=== PATIENT | female | born 1985 | race Caucasian/White ===

== ENCOUNTER 2017-07-25 04:35 | Emergency (ER) | payer SELFPAY ==
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
== END 2017-07-25 06:20 | disposition home or self-care (01) ==
LOC: MW.ED 04:35
DX: S09.90XA Unspecified injury of head, initial encounter (principal); S19.9XXA Unspecified injury of neck, initial encounter; F17.210 Nicotine dependence, cigarettes, uncomplicated; Z91.013 Allergy to seafood; Y04.0XXA Assault by unarmed brawl or fight, initial encounter
CPT/HCPCS: 70450; 70450-26; 72125; 72125-26; 81025; 99283; 99284-25

== ENCOUNTER 2019-01-01 13:02 | Inpatient (IN) | payer MEDICAID ==
[2019-01-01] MEDS ORDERED: Nalbuphine 10 MG/1 ML Vial IVPUSH PRN (13:22)
[2019-01-01] MEDS ORDERED: Sodium Chloride 0.9% 10 ML SDV IV PRN (13:22)
[2019-01-01] MEDS ORDERED: Methylergonovine 0.2 MG/1 ML Amp IM PRN (13:22)
[2019-01-01] MEDS ORDERED: Tranexamic Acid 1,000 MG in Sodium Chloride 0.9% 100 ML IV PRN (13:22)
[2019-01-01] MEDS ORDERED: Lidocaine 1% 50 ML MDV INJECT PRN (13:22)
[2019-01-01] MEDS ORDERED: Misoprostol 200 MCG Tab PO PRN (13:22)
[2019-01-01] MEDS ORDERED: Sodium Chloride 0.9% 10 ML Syringe FLUSH PRN (13:22)
[2019-01-01] MEDS ORDERED: Water For Irrigation,Sterile 1,000 ML Container IRR PRN (13:22)
[2019-01-01] MEDS ORDERED: Sodium Chloride 0.9% 2.5 ML Syringe FLUSH PRN (13:22)
[2019-01-01] MEDS ORDERED: Carboprost Tromethamine 250 MCG/1 ML Amp IM PRN (13:22)
[2019-01-01] MEDS ORDERED: Butorphanol 1 MG/ML SDV IVPUSH PRN (13:22)
[2019-01-01] MEDS ORDERED: Oxytocin/0.9 % Sodium Chloride 30 UNIT/500 ML BAG IV SCH (13:30)
[2019-01-01] MEDS: Lactated Ringers 1,000 ML IV SCH ×2 (13:59→16:44)
[2019-01-01] MEDS ORDERED: Aluminum Hydroxide/Magnesium Hydroxide/Simethicone Susp 30 ML Cup PO ONE (16:06)
[2019-01-01] MEDS ORDERED: Ropivacaine HCl/PF 100 ML ONE (16:23)
[2019-01-01] MEDS ORDERED: fentaNYL 100 MCG/2 ML SDV ONE (16:23)
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
--- NOTE | 2019-01-01 16:46 | PCM.PRNOTE ---
- Free Text/Narrative Note: Anes Note 1626 Patient requests epidural for L&D. Sitting position. Level L3-L4, midline approach. Sterile tecnique, chloraprep scrub to lumbar area. Sterile fenestrated drape applied. Epidural space easily achieved single attempt with ease. CLARITA at 4 cm, cath threaded 5 cm with ease. Secured at 9 cm at skin. Sterile adhesive dressing applied. Test 1631 3 cc 1.5% lido with epi negative. 1633 load 10 cc 0.2% ropivicaine with 1 mcg cc fentanyl in slow divided doses. 1636 pump started with same solution at 8 cc hr with 6 cc q 20 min prn bolus. Time with Patient [id number] Jose Miguel George CRNA
--- NOTE | 2019-01-01 18:43 | PCM.OPNOTE ---
- General Post-Op/Procedure Note Date of Surgery/Procedure: 01/01/19 Operative Procedure(s): /IP Findings: Viable male APGARs 8, 9 weight pending. Spontaneous delivery intact placenta with 3 V cord. Meconium stained fluid. Pre Op Diagnosis: 37/6 week IUP. Labor. Meconium stained fluid Post-Op Diagnosis: Same Anesthesia Technique: Epidural Primary Surgeon: Jeannine Quinn EBL in mLs: 300 Complications: none known Condition: Stable Free Text/Narrative:: Dictation [id number]
--- NOTE | 2019-01-01 19:10 | OR ---
SURGEON: Jeannine Quinn M.D. DATE OF PROCEDURE: 01/01/2019 PREOPERATIVE DIAGNOSES: 1. A 37- and 6-week intrauterine . 2. Active labor. 3. Meconium-stained amniotic fluid. POSTOPERATIVE DIAGNOSES: 1. A 37- and 6-week intrauterine . 2. Active labor. 3. Meconium-stained amniotic fluid. PROCEDURE PERFORMED: Spontaneous vaginal delivery with intact perineum. PRIMARY SURGEON: Jeannine Quinn M.D. ANESTHESIA: Epidural. ESTIMATED BLOOD LOSS: 300 mL. FINDINGS: Viable male. scores of 8 at one minute and 9 at five minutes. Weight is pending. Spontaneous delivery. Intact placenta. Meconium-stained amniotic fluid. COMPLICATIONS: None known. DISPOSITION: The patient in LDRP, infant in Nursery. PROCEDURE IN DETAIL: Cathy is a 33-year-old G5, P3, A1, at 37 and 6 weeks gestational age, who presents on the afternoon of 01/01/2019 with regular contractions. On initial examination, she was found to be 5 cm, and therefore, was admitted. Routine labs were drawn. IV hydration was initiated. heart tones in the 140s with variability. She then progressed to 6 to 7 cm. She is group B beta strep negative, underwent amniotomy. The fluid appeared to be dark or sanguinous at this point. heart tones being 140s with variability. The patient continued to labor, and once she was 8 to 9 cm, she did request epidural. She underwent this satisfactorily, became more comfortable, and progressed to complete, 100% effaced, +1 station. She began pushing efforts and pushed with good effort, was able to deliver to a +3 station, was placed in modified dorsal lithotomy position, and was prepped and draped in the usual aseptic manner. Continued with pushing efforts, was able to deliver to a +5. Head was delivered, followed by anterior shoulder, posterior shoulder, and remainder of the body. The infant's oropharynx and nares bulb suctioned. Infant had good tone and was crying. There was meconium-stained fluid noted. The infant was handed off to his mother with attending nursing staff at the side. After a delay, cord was clamped x2 and cut. The cord arterial, cord venous, and cord blood sampling obtained. Light pressure was applied while the placenta was delivered spontaneously intact. Vigorous fundal uterine massage was then applied while 30 units of Pitocin was delivered in 500 mL of IV fluid. Upon inspection of the cervix, vaginal sidewalls, and perineum, these were found to be intact. The uterus remained firm. Hemostasis was evident. Sponge and instrument count was correct. The patient remained in LDRP, infant to Nursery. ZEINAB / JOSELIN /[id number]
[2019-01-01] MEDS ORDERED: Witch Hazel Medicated Pads 40/Jar TOP ONE (21:25)
[2019-01-01] MEDS ORDERED: Benzocaine/Menthol 20%-0.5% Spray 78 GM Cannister ONE (21:26)
[2019-01-01] MEDS ORDERED: oxyCODONE 5 MG Tab PO PRN (22:33)
[2019-01-01] MEDS ORDERED: Ibuprofen 800 MG Tab PO PRN (22:33)
[2019-01-01] MEDS ORDERED: Benzocaine/Menthol 20%-0.5% Spray 78 GM Cannister TOP PRN (22:33)
[2019-01-01] MEDS ORDERED: Ibuprofen 400 MG Tab PO PRN (22:33)
[2019-01-01] MEDS ORDERED: Lanolin 100% Cream 7 GM Tube TOP PRN (22:33)
[2019-01-01] MEDS ORDERED: Witch Hazel Medicated Pads 40/Jar TOP PRN (22:33)
[2019-01-01] MEDS ORDERED: Acetaminophen 500 MG Tab PO PRN ×2 (22:33)
--- NOTE | 2019-01-02 07:18 | PCM.POSTAN ---
POST ANESTHESIA ASSESSMENT - MENTAL STATUS Mental Status: Alert - RESPIRATORY Respiratory Status: Respiratory Rate WNL - CARDIOVASCULAR CV Status: Pulse Rate WNL - GASTROINTESTINAL GI Status: No Symptoms - POST OP HYDRATION Hydration Status: Adequate & Stable
--- NOTE | 2019-01-02 07:19 | PCM48HPAN ---
Post Anesthesia Note - EVALUATION WITHIN 48HRS OF ANESTHETIC Vital Signs in Normal Range: Yes Patient Participated in Evaluation: Yes Respiratory Function Stable: Yes Airway Patent: Yes Cardiovascular Function Stable: Yes Hydration Status Stable: Yes Pain Control Satisfactory: Yes Nausea and Vomiting Control Satisfactory: Yes Mental Status Recovered: Yes Resp Rate: 16
[2019-01-02] MEDS ORDERED: Ondansetron 4 MG/2 ML SDV IVPUSH PRN (07:55)
[2019-01-02] MEDS ORDERED: Docusate Sodium 100 MG Cap PO PRN (07:55)
[2019-01-02] MEDS ORDERED: Bisacodyl 10 MG Supp RECTAL PRN (07:55)
--- NOTE | 2019-01-02 08:36 | PCM.PNPP ---
- General Info Date of Service: 01/02/19 Functional Status: Reports: Pain Controlled, Tolerating Diet, Ambulating, Urinating - Review of Systems General: Reports: Fatigue. Denies: Fever, Weakness Pulmonary: Denies: Shortness of Breath Cardiovascular: Denies: Chest Pain, Palpitations, Lightheadedness Gastrointestinal: Denies: Abdominal Pain, Nausea, Vomiting Genitourinary: Denies: Flank Pain Musculoskeletal: Reports: No Symptoms Skin: Reports: No Symptoms Neurological: Reports: No Symptoms Psychiatric: Reports: No Symptoms - General Info Date of Service: 01/02/19 - Patient Data Vital Signs - Most Recent: Last Vital Signs Temp 36.8 C 01/02/19 07:07 Pulse 83 01/02/19 07:07 Resp 16 01/02/19 07:18 BP 108/70 01/02/19 07:07 Pulse Ox 95 01/02/19 07:07 Weight - Most Recent: 207.4 kg Lab Results - Last 24 Hours: Laboratory Results - last 24 hr 01/01/19 01/01/19 01/01/19 Range/Units 13:55 13:55 14:00 WBC 12.98 H (4.0-11.0) K/uL RBC 4.05 L (4.30-5.90) M/uL Hgb 12.5 (12.0-16.0) g/dL Hct 37.0 (36.0-46.0) % MCV 91.4 (80.0-98.0) fL MCH 30.9 (27.0-32.0) pg MCHC 33.8 (31.0-37.0) g/dL RDW Std Deviation 47.4 (28.0-62.0) fl RDW Coeff of Fareed 14 (11.0-15.0) % Plt Count 139 L (150-400) K/uL MPV 12.30 H (7.40-12.00) fL Nucleated RBC % 0.0 /100WBC Nucleated RBCs # 0 K/uL Cord ABG pH (7.18-7.38) Cord ABG Base Excess (-10--2) Cord VBG pH (7.25-7.45) Cord VBG Base Excess (-10--2) Urine Opiates Screen NEGATIVE (NEGATIVE) Ur Oxycodone Screen NEGATIVE (NEGATIVE) Urine Methadone Screen NEGATIVE (NEGATIVE) Ur Barbiturates Screen NEGATIVE (NEGATIVE) Ur Phencyclidine Scrn NEGATIVE (NEGATIVE) Ur Amphetamine Screen NEGATIVE (NEGATIVE) U Methamphetamines Scrn NEGATIVE (NEGATIVE) U Benzodiazepines Scrn NEGATIVE (NEGATIVE) U Cocaine Metab Screen NEGATIVE (NEGATIVE) U Marijuana (THC) Screen NEGATIVE (NEGATIVE) Blood Type O POSITIVE Antibody Screen NEGATIVE 01/01/19 01/02/19 Range/Units 18:27 05:46 WBC (4.0-11.0) K/uL RBC (4.30-5.90) M/uL Hgb 11.9 L (12.0-16.0) g/dL Hct 36.1 (36.0-46.0) % MCV (80.0-98.0) fL MCH (27.0-32.0) pg MCHC (31.0-37.0) g/dL RDW Std Deviation (28.0-62.0) fl RDW Coeff of Fareed (11.0-15.0) % Plt Count (150-400) K/uL MPV (7.40-12.00) fL Nucleated RBC % /100WBC Nucleated RBCs # K/uL Cord ABG pH 7.413 H (7.18-7.38) Cord ABG Base Excess -5 (-10--2) Cord VBG pH 7.433 (7.25-7.45) Cord VBG Base Excess -5 (-10--2) Urine Opiates Screen (NEGATIVE) Ur Oxycodone Screen (NEGATIVE) Urine Methadone Screen (NEGATIVE) Ur Barbiturates Screen (NEGATIVE) Ur Phencyclidine Scrn (NEGATIVE) Ur Amphetamine Screen (NEGATIVE) U Methamphetamines Scrn (NEGATIVE) U Benzodiazepines Scrn (NEGATIVE) U Cocaine Metab Screen (NEGATIVE) U Marijuana (THC) Screen (NEGATIVE) Blood Type Antibody Screen Med Orders - Current: Current Medications Acetaminophen (Tylenol Extra Strength) 500 mg PO Q4H PRN PRN Reason: Pain Acetaminophen (Tylenol Extra Strength) 1,000 mg PO Q4H PRN PRN Reason: Pain Benzocaine/Menthol (Dermoplast Pain Relief 20%-0.5% [place]) 78 gm TOP ASDIRECTED PRN PRN Reason: Perineal Comfort Measure Bisacodyl (Dulcolax) 10 mg RECTAL ONETIME PRN PRN Reason: Constipation Butorphanol Tartrate (Stadol) 1 mg IVPUSH Q1H PRN PRN Reason: Pain Carboprost Tromethamine (Hemabate Ds) 250 mcg IM ASDIRECTED PRN PRN Reason: Post Hemorrhage Docusate Sodium (Colace) 100 mg PO BID PRN PRN Reason: Constipation Emollient Ointment (Lansinoh Hpa) 0 gm TOP ASDIRECTED PRN PRN Reason: Sore Nipples Lactated Ringer's (Ringers, Lactated) 1,000 mls @ 150 mls/hr IV ASDIRECTED JOANN Last Admin: 01/01/19 16:44 Dose: 150 mls/hr Oxytocin/Sodium Chloride (Oxytocin 30 Unit/500 Ml-Ns) 30 unit in 500 mls @ 500 mls/hr IV BOLUS [facility] Tranexamic Acid 1,000 mg/ (Sodium Chloride) 110 mls @ 660 mls/hr IV ONETIME PRN PRN Reason: Bleeding Ibuprofen (Motrin) 400 mg PO Q4H PRN PRN Reason: Pain Ibuprofen (Motrin) 800 mg PO Q6H PRN PRN Reason: Pain Last Admin: 01/02/19 05:10 Dose: 800 mg Lidocaine HCl (Xylocaine 1%) 50 ml INJECT ONETIME PRN PRN Reason: Laceration repair Methylergonovine Maleate (Methergine) 0.2 mg IM ASDIRECTED PRN PRN Reason: Post Hemorrhage Last Admin: 01/01/19 20:20 Dose: 0.2 mg Misoprostol (Cytotec) 200 mcg PO ONETIME PRN PRN Reason: Post Hemorrhage Nalbuphine HCl (Nubain) 10 mg IVPUSH Q1H PRN PRN Reason: Pain (severe 7-10) Ondansetron HCl (Zofran) 4 mg IVPUSH Q6H PRN PRN Reason: Nausea/Vomiting Oxycodone HCl (Oxycodone) 5 mg PO Q2H PRN PRN Reason: Pain Sodium Chloride (Saline Flush) 10 ml FLUSH ASDIRECTED PRN PRN Reason: Keep Vein Open Sodium Chloride (Saline Flush) 2.5 ml FLUSH ASDIRECTED PRN PRN Reason: Keep Vein Open Sodium Chloride (Normal Saline) 10 ml IV ASDIRECTED PRN PRN Reason: IV Use Sterile Water (Sterile Water For Irrigation) 1,000 ml IRR ASDIRECTED PRN PRN Reason: delivery Witgaurang Chawla (Tucks) 1 pad TOP ASDIRECTED PRN PRN Reason: comfort care Discontinued Medications Al Hydroxide/Mg Hydroxide (Mag-Al Plus) 30 ml PO ONETIME ONE Stop: 01/01/19 16:07 Benzocaine/Menthol (Dermoplast Pain Relief 20%-0.5% [place]) Confirm Administered Dose 78 gm .ROUTE .STK-MED ONE Stop: 01/01/19 21:27 Last Admin: 01/01/19 21:39 Dose: 1 canister Fentanyl (Sublimaze) Confirm Administered Dose 100 mcg .ROUTE .STK-MED ONE Stop: 01/01/19 16:24 Ropivacaine (Naropin 0.2%) Confirm Administered Dose 100 mls @ as directed .ROUTE .STK-MED ONE Stop: 01/01/19 16:24 Maritza Chawla (Tucks) Confirm Administered Dose 1 pad TOP .STK-MED ONE Stop: 01/01/19 21:26 Last Admin: 01/01/19 21:39 Dose: 1 tub - Recovery Exam Fundal Tone: Firm Fundal Level: At Umbilicus Fundal Placement: Midline Lochia Amount: Scant Lochia Color: Rubra/Red Perineum Description: Intact, Minimal Bruising/Swelling Episiotomy/Laceration: None Bladder Status: Voiding Urinary Elimination: Voided - Exam General: Alert, Oriented Lungs: Normal Respiratory Effort Cardiovascular: Regular Rate, Regular Rhythm GI/Abdominal Exam: Normal Bowel Sounds, Soft Extremities: Pedal Edema (trace). No: Carmelina's Sign Skin: Warm, Dry, Intact Wound/Incisions: Healing Well Neurological: No New Focal Deficit Psy/Mental Status: Alert, Normal Affect, Normal Mood - Problem List & Annotations (1) Vaginal delivery SNOMED Code(s): 434167807 Code(s): O80 - ENCOUNTER FOR FULL-TERM UNCOMPLICATED DELIVERY Status: Acute Current Visit: Yes - Problem List Review Problem List Initiated/Reviewed/Updated: Yes - My Orders Last 24 Hours: My Active Orders 01/01/19 13:22 May Shower [RC] ASDIRECTED Up ad Elva [RC] ASDIRECTED Vital Signs [RC] PER UNIT ROUTINE Butorphanol [Stadol] 1 mg IVPUSH Q1H PRN Carboprost Tromethamine [Hemabate DS] 250 mcg IM ASDIRECTED PRN Lidocaine 1% [Xylocaine 1%] 50 ml INJECT ONETIME PRN Methylergonovine [Methergine] 0.2 mg IM ASDIRECTED PRN Nalbuphine [Nubain] 10 mg IVPUSH Q1H PRN Sodium Chloride 0.9% [Normal Saline] 10 ml IV ASDIRECTED PRN Sodium Chloride 0.9% [Saline Flush] 10 ml FLUSH ASDIRECTED PRN Sodium Chloride 0.9% [Saline Flush] 2.5 ml FLUSH ASDIRECTED PRN Tranexamic Acid [Cyklokapron] 1,000 mg Sodium Chloride 0.9% [Normal Saline] 100 ml IV ONETIME Water For Irrigation,Sterile [Sterile Water for Irrigation] 1,000 ml IRR ASDIRECTED PRN miSOPROStol [Cytotec] 200 mcg PO ONETIME PRN Scalp Electrode [WOMSER] Per Unit Routine Peripheral IV Insertion Adult [OM.PC] Routine Resuscitation Status Routine 01/01/19 13:30 Lactated Ringers [Ringers, Lactated] 1,000 ml IV ASDIRECTED Oxytocin/0.9 % Sodium Chloride [Oxytocin 30 Unit/500 ML-NS] 30 unit in 500 ml IV BOLUS 01/01/19 19:00 Patient Status [ADT] Routine 01/01/19 22:33 May Shower [RC] ASDIRECTED Up ad Elva [RC] ASDIRECTED Vital Signs [RC] PER UNIT ROUTINE Acetaminophen [Tylenol Extra Strength] 1,000 mg PO Q4H PRN Acetaminophen [Tylenol Extra Strength] 500 mg PO Q4H PRN Benzocaine/Menthol [Dermoplast Pain Relief 20%-0.5% [place]] 78 gm TOP ASDIRECTED PRN Ibuprofen [Motrin] 400 mg PO Q4H PRN Ibuprofen [Motrin] 800 mg PO Q6H PRN Lanolin [Lansinoh HPA] See Dose Instructions TOP ASDIRECTED PRN Witch Cammy [Tucks] 1 pad TOP ASDIRECTED PRN oxyCODONE 5 mg PO Q2H PRN Assess Lochia [WOMSER] Per Unit Routine Assess Uterine Involution [WOMSER] Per Unit Routine Peripheral IV Discontinue [OM.PC] Routine 01/02/19 07:55 Bisacodyl [Dulcolax] 10 mg RECTAL ONETIME PRN Docusate Sodium [Colace] 100 mg PO BID PRN Ondansetron [Zofran] 4 mg IVPUSH Q6H PRN 01/02/19 07:56 Patient Status [ADT] Routine Ice Therapy [OM.PC] Per Unit Routine Perineal Care [OM.PC] Per Unit Routine Sitz Bath [OM.PC] Per Unit Routine 01/02/19 Breakfast Regular Diet [DIET] - Assessment Assessment:: PPD 1 status post - Plan Plan:: Continue cares. Patient did receive one dose of methergine last night after uterus became boggy and had more bleeding. This resolved symptoms. VS and labs remain stable.
--- NOTE | 2019-01-03 09:00 | PCM.DCSUM1 ---
<StephenBonita R - Last Filed: 01/03/19 08:57> Discharge Summary - Hospital Course Free Text/Narrative:: Discharge home with baby. Follow up 6 weeks for visit. Diagnosis: Stroke: No Modified [place] Scale: No Symptoms at All Modified [place] Scale Score: 0 - Discharge Data Discharge Date: 01/03/19 Discharge Disposition: Home, Self-Care 01 Condition: Stable - Discharge Diagnosis/Problem(s) (1) Vaginal delivery SNOMED Code(s): 550622080 ICD Code: O80 - ENCOUNTER FOR FULL-TERM UNCOMPLICATED DELIVERY Status: Acute Priority: High - Patient Summary/Data Operative Procedure(s) Performed: /IP - Patient Instructions Diet: Regular Diet as Tolerated Activity: No Strenuous Activities, Rest and Relax Today Driving: May Drive Today Showering/Bathing: May Shower Notify Provider of: Fever, Increased Pain, Nausea and/or Vomiting Other/Special Instructions: Pelvic rest for 6 weeks - Discharge Plan *PRESCRIPTION DRUG MONITORING PROGRAM REVIEWED*: Not Applicable *COPY OF PRESCRIPTION DRUG MONITORING REPORT IN PATIENT JOHNNIE: Not Applicable Prescriptions/Med Rec: Ibuprofen [Motrin] 800 mg PO Q6H PRN #90 tablet PRN Reason: Pain Home Medications: Home Meds PNV95/Ferrous Fumarate/FA [ Tablet] 1 tab PO DAILY 11/15/18 [History] Ibuprofen [Motrin] 800 mg PO Q6H PRN #90 tablet 01/03/19 [Rx] Patient Handouts: Vaginal Delivery, Care After Referrals: [facility] [Outside] Umesh Callahan MD [Physician] - 02/14/19 8:30 am - Discharge Summary/Plan Comment DC Time >30 min.: Yes Discharge Summary/Plan Comment: Discharge home with baby; follow up in 6 weeks for exam. - General Info Date of Service: 01/03/19 Functional Status: Reports: Pain Controlled, Tolerating Diet, Ambulating, Urinating - Review of Systems General: Reports: No Symptoms HEENT: Reports: No Symptoms Pulmonary: Reports: No Symptoms Cardiovascular: Reports: No Symptoms Gastrointestinal: Reports: No Symptoms Genitourinary: Reports: No Symptoms Musculoskeletal: Reports: No Symptoms Skin: Reports: No Symptoms Neurological: Reports: No Symptoms Psychiatric: Reports: No Symptoms - Patient Data Vitals - Most Recent: Last Vital Signs Temp 36.4 C 01/03/19 04:30 Pulse 78 01/03/19 04:30 Resp 16 01/03/19 04:30 BP 115/75 01/03/19 04:30 Pulse Ox 96 01/03/19 04:30 Weight - Most Recent: 207.4 kg Med Orders - Current: Current Medications Acetaminophen (Tylenol Extra Strength) 500 mg PO Q4H PRN PRN Reason: Pain Acetaminophen (Tylenol Extra Strength) 1,000 mg PO Q4H PRN PRN Reason: Pain Last Admin: 01/02/19 15:58 Dose: 1,000 mg Benzocaine/Menthol (Dermoplast Pain Relief 20%-0.5% [place]) 78 gm TOP ASDIRECTED PRN PRN Reason: Perineal Comfort Measure Bisacodyl (Dulcolax) 10 mg RECTAL ONETIME PRN PRN Reason: Constipation Butorphanol Tartrate (Stadol) 1 mg IVPUSH Q1H PRN PRN Reason: Pain Carboprost Tromethamine (Hemabate Ds) 250 mcg IM ASDIRECTED PRN PRN Reason: Post Hemorrhage Docusate Sodium (Colace) 100 mg PO BID PRN PRN Reason: Constipation Emollient Ointment (Lansinoh Hpa) 0 gm TOP ASDIRECTED PRN PRN Reason: Sore Nipples Lactated Ringer's (Ringers, Lactated) 1,000 mls @ 150 mls/hr IV ASDIRECTED JOANN Last Admin: 01/01/19 16:44 Dose: 150 mls/hr Oxytocin/Sodium Chloride (Oxytocin 30 Unit/500 Ml-Ns) 30 unit in 500 mls @ 500 mls/hr IV BOLUS JOANN Tranexamic Acid 1,000 mg/ (Sodium Chloride) 110 mls @ 660 mls/hr IV ONETIME PRN PRN Reason: Bleeding Ibuprofen (Motrin) 400 mg PO Q4H PRN PRN Reason: Pain Ibuprofen (Motrin) 800 mg PO Q6H PRN PRN Reason: Pain Last Admin: 01/02/19 05:10 Dose: 800 mg Lidocaine HCl (Xylocaine 1%) 50 ml INJECT ONETIME PRN PRN Reason: Laceration repair Methylergonovine Maleate (Methergine) 0.2 mg IM ASDIRECTED PRN PRN Reason: Post Hemorrhage Last Admin: 01/01/19 20:20 Dose: 0.2 mg Misoprostol (Cytotec) 200 mcg PO ONETIME PRN PRN Reason: Post Hemorrhage Nalbuphine HCl (Nubain) 10 mg IVPUSH Q1H PRN PRN Reason: Pain (severe 7-10) Ondansetron HCl (Zofran) 4 mg IVPUSH Q6H PRN PRN Reason: Nausea/Vomiting Oxycodone HCl (Oxycodone) 5 mg PO Q2H PRN PRN Reason: Pain Sodium Chloride (Saline Flush) 10 ml FLUSH ASDIRECTED PRN PRN Reason: Keep Vein Open Sodium Chloride (Saline Flush) 2.5 ml FLUSH ASDIRECTED PRN PRN Reason: Keep Vein Open Sodium Chloride (Normal Saline) 10 ml IV ASDIRECTED PRN PRN Reason: IV Use Sterile Water (Sterile Water For Irrigation) 1,000 ml IRR ASDIRECTED PRN PRN Reason: delivery Witgaurang Chawla (Tucks) 1 pad TOP ASDIRECTED PRN PRN Reason: comfort care Discontinued Medications Al Hydroxide/Mg Hydroxide (Mag-Al Plus) 30 ml PO ONETIME ONE Stop: 01/01/19 16:07 Benzocaine/Menthol (Dermoplast Pain Relief 20%-0.5% [place]) Confirm Administered Dose 78 gm .ROUTE .STK-MED ONE Stop: 01/01/19 21:27 Last Admin: 01/01/19 21:39 Dose: 1 canister Fentanyl (Sublimaze) Confirm Administered Dose 100 mcg .ROUTE .STK-MED ONE Stop: 01/01/19 16:24 Ropivacaine (Naropin 0.2%) Confirm Administered Dose 100 mls @ as directed .ROUTE .STK-MED ONE Stop: 01/01/19 16:24 Witch Cammy (Tucks) Confirm Administered Dose 1 pad TOP .STK-MED ONE Stop: 01/01/19 21:26 Last Admin: 01/01/19 21:39 Dose: 1 tub - Exam General: Reports: Alert, Oriented, Cooperative, No Acute Distress Neck: Reports: Trachea Midline Lungs: Reports: Normal Respiratory Effort GI/Abdominal Exam: Soft, Non-Tender (Female) Exam: Deferred Rectal (Female) Exam: Deferred Back Exam: Reports: Full Range of Motion Extremities: Normal Range of Motion Skin: Reports: Warm, Dry, Intact Neurological: Reports: No New Focal Deficit, Normal Gait, Normal Speech, Normal Tone Psy/Mental Status: Reports: Alert, Normal Affect, Normal Mood <VázquezDoris - Last Filed: 01/05/19 18:03> - Patient Data Vitals - Most Recent: Last Vital Signs Temp 36.4 C 01/03/19 09:00 Pulse 74 01/03/19 09:00 Resp 18 01/03/19 09:00 BP 106/52 L 01/03/19 09:00 Pulse Ox 97 01/03/19 09:00 Med Orders - Current: Current Medications Discontinued Medications Acetaminophen (Tylenol Extra Strength) 500 mg PO Q4H PRN PRN Reason: Pain Acetaminophen (Tylenol Extra Strength) 1,000 mg PO Q4H PRN PRN Reason: Pain Last Admin: 01/02/19 15:58 Dose: 1,000 mg Al Hydroxide/Mg Hydroxide (Mag-Al Plus) 30 ml PO ONETIME ONE Stop: 01/01/19 16:07 Benzocaine/Menthol (Dermoplast Pain Relief 20%-0.5% [place]) Confirm Administered Dose 78 gm .ROUTE .STK-MED ONE Stop: 01/01/19 21:27 Last Admin: 01/01/19 21:39 Dose: 1 canister Benzocaine/Menthol (Dermoplast Pain Relief 20%-0.5% [place]) 78 gm TOP ASDIRECTED PRN PRN Reason: Perineal Comfort Measure Bisacodyl (Dulcolax) 10 mg RECTAL ONETIME PRN PRN Reason: Constipation Butorphanol Tartrate (Stadol) 1 mg IVPUSH Q1H PRN PRN Reason: Pain Carboprost Tromethamine (Hemabate Ds) 250 mcg IM ASDIRECTED PRN PRN Reason: Post Hemorrhage Docusate Sodium (Colace) 100 mg PO BID PRN PRN Reason: Constipation Last Admin: 01/03/19 09:01 Dose: 100 mg Emollient Ointment (Lansinoh Hpa) 0 gm TOP ASDIRECTED PRN PRN Reason: Sore Nipples Fentanyl (Sublimaze) Confirm Administered Dose 100 mcg .ROUTE .STK-MED ONE Stop: 01/01/19 16:24 Lactated Ringer's (Ringers, Lactated) 1,000 mls @ 150 mls/hr IV ASDIRECTED JOANN Last Admin: 01/01/19 16:44 Dose: 150 mls/hr Oxytocin/Sodium Chloride (Oxytocin 30 Unit/500 Ml-Ns) 30 unit in 500 mls @ 500 mls/hr IV BOLUS [facility] Tranexamic Acid 1,000 mg/ (Sodium Chloride) 110 mls @ 660 mls/hr IV ONETIME PRN PRN Reason: Bleeding Ropivacaine (Naropin 0.2%) Confirm Administered Dose 100 mls @ as directed .ROUTE .[employer]-MED ONE Stop: 01/01/19 16:24 Ibuprofen (Motrin) 400 mg PO Q4H PRN PRN Reason: Pain Ibuprofen (Motrin) 800 mg PO Q6H PRN PRN Reason: Pain Last Admin: 01/02/19 05:10 Dose: 800 mg Lidocaine HCl (Xylocaine 1%) 50 ml INJECT ONETIME PRN PRN Reason: Laceration repair Methylergonovine Maleate (Methergine) 0.2 mg IM ASDIRECTED PRN PRN Reason: Post Hemorrhage Last Admin: 01/01/19 20:20 Dose: 0.2 mg Misoprostol (Cytotec) 200 mcg PO ONETIME PRN PRN Reason: Post Hemorrhage Nalbuphine HCl (Nubain) 10 mg IVPUSH Q1H PRN PRN Reason: Pain (severe 7-10) Ondansetron HCl (Zofran) 4 mg IVPUSH Q6H PRN PRN Reason: Nausea/Vomiting Oxycodone HCl (Oxycodone) 5 mg PO Q2H PRN PRN Reason: Pain Sodium Chloride (Saline Flush) 10 ml FLUSH ASDIRECTED PRN PRN Reason: Keep Vein Open Sodium Chloride (Saline Flush) 2.5 ml FLUSH ASDIRECTED PRN PRN Reason: Keep Vein Open Sodium Chloride (Normal Saline) 10 ml IV ASDIRECTED PRN PRN Reason: IV Use Sterile Water (Sterile Water For Irrigation) 1,000 ml IRR ASDIRECTED PRN PRN Reason: delivery Witch Cammy (Tucks) Confirm Administered Dose 1 pad TOP .[employer]-MED ONE Stop: 01/01/19 21:26 Last Admin: 01/01/19 21:39 Dose: 1 tub Witch Cammy (Tucks) 1 pad TOP ASDIRECTED PRN PRN Reason: comfort care
== END 2019-01-03 15:00 | disposition home or self-care (01) | DRG 807 ==
LOC: MW.OB 13:02 → OBSVTOIN 18:27 → MW.OB 21:19
PROVIDERS: ADMIT Obstetrics & Gynecology; ATTEND Obstetrics & Gynecology
PROC: 10E0XZZ Delivery of Products of Conception, External Approach (ICD-10-PCS; principal; 2019-01-01)
PROC: 3E0R3BZ Introduction of Anesthetic Agent into Spinal Canal, Percutaneous Approach (ICD-10-PCS; 2019-01-01)
PROC: 00HU33Z Insertion of Infusion Device into Spinal Canal, Percutaneous Approach (ICD-10-PCS; 2019-01-01)
DX: O77.0 Labor and delivery complicated by meconium in amniotic fluid (principal); J45.909 Unspecified asthma, uncomplicated; O99.52 Diseases of the respiratory system complicating childbirth; Z37.0 Single live birth; Z3A.37 37 weeks gestation of pregnancy
CPT/HCPCS: 01967; 36415; 51701; 59025; 59409; 80305-QW; 82803; 85014; 85018; 85027; 86850; 86900; 86901; A9270-GY; J2210; J3010; J7120

== ENCOUNTER 2019-12-31 08:13 | Inpatient (IN) | payer SELFPAY ==
[2019-12-31] MEDS ORDERED: Methylergonovine 0.2 MG/1 ML Amp IM PRN (08:26)
[2019-12-31] MEDS ORDERED: Water For Irrigation,Sterile 1,000 ML Container IRR PRN (08:26)
[2019-12-31] MEDS ORDERED: Tranexamic Acid 1,000 MG in Sodium Chloride 0.9% 100 ML IV PRN (08:26)
[2019-12-31] MEDS ORDERED: Nalbuphine 10 MG/1 ML Vial IVPUSH PRN (08:26)
[2019-12-31] MEDS ORDERED: Butorphanol 1 MG/ML SDV IVPUSH PRN (08:26)
[2019-12-31] MEDS ORDERED: Sodium Chloride 0.9% 10 ML Syringe FLUSH PRN (08:26)
[2019-12-31] MEDS ORDERED: Misoprostol 200 MCG Tab PO PRN (08:26)
[2019-12-31] MEDS ORDERED: Sodium Chloride 0.9% 10 ML SDV IV PRN (08:26)
[2019-12-31] MEDS ORDERED: Lidocaine 1% 50 ML MDV INJECT PRN (08:26)
[2019-12-31] MEDS ORDERED: Sodium Chloride 0.9% 2.5 ML Syringe FLUSH PRN (08:26)
[2019-12-31] MEDS ORDERED: Carboprost Tromethamine 250 MCG/1 ML Amp IM PRN (08:26)
[2019-12-31] MEDS ORDERED: Lactated Ringers 1,000 ML IV SCH (08:30)
[2019-12-31] MEDS ORDERED: Oxytocin/0.9 % Sodium Chloride 30 UNIT/500 ML BAG IV SCH (08:30)
[2019-12-31] MEDS ORDERED: Oxytocin/0.9 % Sodium Chloride 30 UNIT/500 ML BAG ONE (08:50)
--- NOTE | 2019-12-31 09:34 | PCM.PREANE ---
Preanesthetic Assessment - Anesthesia/Transfusion/Family Hx Anesthesia History: Prior Anesthesia Without Reaction Family History of Anesthesia Reaction: No Transfusion History: Prior Transfusion Without Reaction - Physical Assessment NPO Status Date: 12/31/19 NPO Status Time: 08:00 Height: 1.68 m ASA Class: 2 - Lab Values: Laboratory Last Values WBC 13.83 K/uL (4.0-11.0) H 12/31/19 08:30 RBC 4.32 M/uL (4.30-5.90) 12/31/19 08:30 Hgb 12.7 g/dL (12.0-16.0) 12/31/19 08:30 Hct 38.4 % (36.0-46.0) 12/31/19 08:30 MCV 88.9 fL (80.0-98.0) 12/31/19 08:30 MCH 29.4 pg (27.0-32.0) 12/31/19 08:30 MCHC 33.1 g/dL (31.0-37.0) 12/31/19 08:30 RDW Std Deviation 45.0 fl (28.0-62.0) 12/31/19 08:30 RDW Coeff of Fareed 14 % (11.0-15.0) 12/31/19 08:30 Plt Count 135 K/uL (150-400) L 12/31/19 08:30 MPV 12.60 fL (7.40-12.00) H 12/31/19 08:30 Nucleated RBC % 0.0 /100WBC 12/31/19 08:30 Nucleated RBCs # 0 K/uL 12/31/19 08:30 COVID-19 (NITZA) NEGATIVE (NEGATIVE) 12/31/19 08:35 - Allergies Allergies/Adverse Reactions: Allergies Allergy/AdvReac Type Severity Reaction Status Date / Time shellfish derived Allergy Hives Verified 12/29/18 16:36 - Acknowledgements Anesthesia Type Planned: Spinal Pt an Appropriate Candidate for the Planned Anesthesia: Yes Alternatives and Risks of Anesthesia Discussed w Pt/Guardian: Yes Pt/Guardian Understands and Agrees with Anesthesia Plan: Yes PreAnesthesia Questionnaire HEENT History: Reports: None Other HEENT History: collapsed sinuses Cardiovascular History: Reports: Aneurysm Respiratory History: Reports: Asthma Gastrointestinal History: Reports: None Genitourinary History: Reports: None SERVICING REP History: Reports: Musculoskeletal History: Reports: None Other Musculoskeletal History: Skull fracture Neurological History: Reports: Cerebral Aneurysms, Other (See Below) Psychiatric History: Reports: None Endocrine/Metabolic History: Reports: Diabetes, Gestational Hematologic History: Reports: None Immunologic History: Reports: None Oncologic (Cancer) History: Reports: None Dermatologic History: Reports: None - Infectious Disease History Infectious Disease History: Reports: None - Past Surgical History Head Surgeries/Procedures: Reports: None Neurological Surgical History: Reports: Other (See Below) Other Neurological Surgeries/Procedures: Head Surgery - HOME MEDS Home Medications: Home Meds Pnv No.95/Ferrous Fum/Folic AC [ Tablet] 1 tab PO DAILY 11/15/18 [History] Ibuprofen [Motrin] 800 mg PO Q6H PRN #90 tablet 01/03/19 [Rx] - CURRENT (IN HOUSE) MEDS Current Meds: Current Medications Butorphanol Tartrate (Stadol) 1 mg IVPUSH Q1H PRN PRN Reason: Pain Carboprost Tromethamine (Hemabate Ds) 250 mcg IM ASDIRECTED PRN PRN Reason: Post Hemorrhage Oxytocin/Sodium Chloride (Oxytocin 30 Unit/500 Ml-Ns) 30 unit in 500 mls @ 999 mls/hr IV TITRATE [facility] Tranexamic Acid 1,000 mg/ (Sodium Chloride) 110 mls @ 660 mls/hr IV ONETIME PRN PRN Reason: Bleeding Lactated Ringer's (Ringers, Lactated) 1,000 mls @ 150 mls/hr IV ASDIRECTED JOANN Last Admin: 12/31/19 08:48 Dose: 999 mls/hr Documented by: Lidocaine HCl (Xylocaine 1%) 50 ml INJECT ONETIME PRN PRN Reason: Laceration repair Methylergonovine Maleate (Methergine) 0.2 mg IM ASDIRECTED PRN PRN Reason: Post Hemorrhage Misoprostol (Cytotec) 200 mcg PO ONETIME PRN PRN Reason: Post Hemorrhage Nalbuphine HCl (Nubain) 10 mg IVPUSH Q1H PRN PRN Reason: Pain (severe 7-10) Sodium Chloride (Saline Flush) 10 ml FLUSH ASDIRECTED PRN PRN Reason: Keep Vein Open Sodium Chloride (Saline Flush) 2.5 ml FLUSH ASDIRECTED PRN PRN Reason: Keep Vein Open Sodium Chloride (Normal Saline) 10 ml IV ASDIRECTED PRN PRN Reason: IV Use Sterile Water (Sterile Water For Irrigation) 1,000 ml IRR ASDIRECTED PRN PRN Reason: delivery Discontinued Medications Oxytocin/Sodium Chloride (Oxytocin 30 Unit/500 Ml-Ns) Confirm Administered Dose 30 unit in 500 mls @ as directed .ROUTE .[employer]-MED ONE Stop: 12/31/19 08:51
--- NOTE | 2019-12-31 09:38 | PCM.PRNOTE ---
- Free Text/Narrative Note: Anes. Note Pt request analgesia for labor and delivery pt is 9 cm and is progressvie rapidly sitting position chloroprep to lumbar area steril fenistrated drap applied interthecal performed L4-5 midline approach under steril techinique A 25 pencan needle was carefully introduced under LA interthecal space easily acheived single attempted/ CSF clear. 5mg spinal Marcain injected slowley adequate analgesic obtained time with patient [phone] Jose Miguel George CRNA
[2019-12-31] MEDS ORDERED: Lanolin 100% Cream 7 GM Tube TOP PRN (10:23)
[2019-12-31] MEDS ORDERED: Bisacodyl 10 MG Supp RECTAL PRN (10:23)
[2019-12-31] MEDS ORDERED: oxyCODONE 5 MG Tab PO PRN (10:23)
[2019-12-31] MEDS ORDERED: Witch Hazel Medicated Pads 40/Jar TOP PRN (10:23)
[2019-12-31] MEDS ORDERED: Benzocaine/Menthol 20%-0.5% Spray 78 GM Cannister TOP PRN (10:23)
[2019-12-31] MEDS ORDERED: Ibuprofen 400 MG Tab PO PRN (10:23)
[2019-12-31] MEDS ORDERED: Acetaminophen 500 MG Tab PO PRN ×2 (10:23)
--- NOTE | 2019-12-31 10:31 | PCM.OPNOTE ---
- General Post-Op/Procedure Note Date of Surgery/Procedure: 12/31/19 Operative Procedure(s): /IP Findings: Viable male APGARs 7, 9 weight pending. Spontaneous delivery intact placenta with 3V cord Pre Op Diagnosis: 37/6 week IUP. Labor Post-Op Diagnosis: Same Anesthesia Technique: Regional Block, Other (see below) (Intrathecal) Primary Surgeon: Jeannine Quinn EBL in mLs: 200 Complications: none known Condition: Stable Free Text/Narrative:: Dictation [id number]
[2019-12-31] MEDS: Ibuprofen 800 MG Tab PO PRN ×2 (11:19→19:38)
--- NOTE | 2019-12-31 12:59 | OR ---
SURGEON: Jeannine Quinn M.D. DATE OF PROCEDURE: 12/31/2019 PREOPERATIVE DIAGNOSES: 1. A 37-6/7 weeks' intrauterine . 2. Active labor. POSTOPERATIVE DIAGNOSES: 1. A 37-6/7 weeks' intrauterine . 2. Active labor. PROCEDURE: Spontaneous vaginal delivery, intact perineum. PRIMARY SURGEON: Jeannine Quinn MD ANESTHESIA: Intrathecal. ESTIMATED BLOOD LOSS: 200 mL. COMPLICATIONS: None known. FINDINGS: Viable male. score of 7 at one minute and 9 at five minutes. Weight is pending. Spontaneous delivery, intact placenta, 3-vessel cord. DISPOSITION: to nursery, mom in LDRP. PROCEDURE DETAILS: Cathy is a 34-year-old, G6, P 4-0-1-4, at 37-6/7 weeks' gestational age who presents this morning with regular contractions, found to be 6 cm with leakage of fluid, clear. She is group B beta strep negative. The patient was admitted, routine labs drawn, IV hydration initiated. She is COVID negative. The patient quickly progressed to 8 cm, but did want regional anesthesia; therefore, Anesthesia did place an intrathecal. The patient very quickly progressed to complete thereafter. heart tones were in the 120s. The patient felt urge to push. Amniotomy of forebag was performed. The patient pushed. With the next two contraction, was able to deliver the infant's head atraumatically spontaneously, followed by anterior shoulder, posterior shoulder, and remainder of the body without difficulty. The infant's oropharynx and nares were bulb suctioned. The infant was handed off to his mother with attending nursing staff at her side. After a delay, cord was clamped x2 and cut. Cord arterial, cord venous, cord blood sampling obtained. Light pressure was applied while the placenta was delivered spontaneously intact. Vigorous fundal uterine massage was then applied while 30 units of Pitocin was delivered in 500 mL of IV fluid. Upon inspection of the cervix, vaginal sidewalls, and perineum, these were found to be intact. Uterus remained firm. Hemostasis evident. Sponge count and instrument count were correct. The patient remained in LDRP, to nursery. ZEINAB / JOSELIN /[id number]
[2019-12-31] MEDS: Docusate Sodium 100 MG Cap PO PRN (19:39)
[2020-01-01] MEDS: Ibuprofen 800 MG Tab PO PRN ×2 (05:30→11:18)
--- NOTE | 2020-01-01 07:31 | PCM48HPAN ---
Post Anesthesia Note - EVALUATION WITHIN 48HRS OF ANESTHETIC Vital Signs in Normal Range: Yes Patient Participated in Evaluation: Yes Respiratory Function Stable: Yes Airway Patent: Yes Cardiovascular Function Stable: Yes Hydration Status Stable: Yes Pain Control Satisfactory: Yes Nausea and Vomiting Control Satisfactory: Yes Mental Status Recovered: Yes Vital Signs: Last Vital Signs Temp 36.6 C 01/01/20 04:45 Pulse 88 01/01/20 04:45 Resp 18 01/01/20 04:45 BP 129/81 01/01/20 04:45 Pulse Ox 95 01/01/20 04:45
[2020-01-01] MEDS: Docusate Sodium 100 MG Cap PO PRN (08:46)
--- NOTE | 2020-01-01 08:48 | PCM.PNPP ---
- General Info Date of Service: 01/01/20 Functional Status: Reports: Pain Controlled, Tolerating Diet, Ambulating, Urinating - Review of Systems General: Reports: Fatigue. Denies: Fever, Weakness Pulmonary: Denies: Shortness of Breath Cardiovascular: Denies: Chest Pain, Palpitations Gastrointestinal: Denies: Abdominal Pain, Constipation, Nausea, Vomiting Genitourinary: Denies: Flank Pain Musculoskeletal: Reports: No Symptoms Skin: Reports: No Symptoms Neurological: Reports: No Symptoms Psychiatric: Reports: No Symptoms - General Info Date of Service: 01/01/20 - Patient Data Vital Signs - Most Recent: Last Vital Signs Temp 36.2 C 01/01/20 08:00 Pulse 79 01/01/20 08:00 Resp 14 01/01/20 08:00 BP 92/49 L 01/01/20 08:00 Pulse Ox 96 01/01/20 08:00 Weight - Most Recent: 93.44 kg Lab Results - Last 24 Hours: Laboratory Results - last 24 hr 12/31/19 12/31/19 12/31/19 Range/Units 08:30 08:30 08:35 WBC 13.83 H (4.0-11.0) K/uL RBC 4.32 (4.30-5.90) M/uL Hgb 12.7 (12.0-16.0) g/dL Hct 38.4 (36.0-46.0) % MCV 88.9 (80.0-98.0) fL MCH 29.4 (27.0-32.0) pg MCHC 33.1 (31.0-37.0) g/dL RDW Std Deviation 45.0 (28.0-62.0) fl RDW Coeff of Fareed 14 (11.0-15.0) % Plt Count 135 L (150-400) K/uL MPV 12.60 H (7.40-12.00) fL Nucleated RBC % 0.0 /100WBC Nucleated RBCs # 0 K/uL Cord ABG pH (7.18-7.38) Cord ABG Base Excess (-10--2) Cord VBG pH (7.25-7.45) Cord VBG Base Excess (-10--2) COVID-19 (NITZA) NEGATIVE (NEGATIVE) Blood Type O POSITIVE Antibody Screen NEGATIVE 12/31/19 01/01/20 Range/Units 10:09 06:25 WBC (4.0-11.0) K/uL RBC (4.30-5.90) M/uL Hgb 11.1 L (12.0-16.0) g/dL Hct 34.9 L (36.0-46.0) % MCV (80.0-98.0) fL MCH (27.0-32.0) pg MCHC (31.0-37.0) g/dL RDW Std Deviation (28.0-62.0) fl RDW Coeff of Fareed (11.0-15.0) % Plt Count (150-400) K/uL MPV (7.40-12.00) fL Nucleated RBC % /100WBC Nucleated RBCs # K/uL Cord ABG pH 7.217 (7.18-7.38) Cord ABG Base Excess -8 (-10--2) Cord VBG pH 7.274 (7.25-7.45) Cord VBG Base Excess -7 (-10--2) COVID-19 (NITZA) (NEGATIVE) Blood Type Antibody Screen Med Orders - Current: Current Medications Acetaminophen (Tylenol Extra Strength) 500 mg PO Q4H PRN PRN Reason: Pain Acetaminophen (Tylenol Extra Strength) 1,000 mg PO Q4H PRN PRN Reason: Pain Last Admin: 01/01/20 08:45 Dose: 1,000 mg Documented by: Benzocaine/Menthol (Dermoplast Pain Relief 20%-0.5% [place]) 78 gm TOP ASDIRECTED PRN PRN Reason: Perineal Comfort Measure Bisacodyl (Dulcolax) 10 mg RECTAL ONETIME PRN PRN Reason: Constipation Carboprost Tromethamine (Hemabate Ds) 250 mcg IM ASDIRECTED PRN PRN Reason: Post Hemorrhage Docusate Sodium (Colace) 100 mg PO BID PRN PRN Reason: Constipation Last Admin: 01/01/20 08:46 Dose: 100 mg Documented by: Emollient Ointment (Lansinoh Hpa) 0 gm TOP ASDIRECTED PRN PRN Reason: Sore Nipples Oxytocin/Sodium Chloride (Oxytocin 30 Unit/500 Ml-Ns) 30 unit in 500 mls @ 999 mls/hr IV TITRATE JOANN Last Admin: 12/31/19 10:12 Dose: 999 mls/hr Documented by: Tranexamic Acid 1,000 mg/ (Sodium Chloride) 110 mls @ 660 mls/hr IV ONETIME PRN PRN Reason: Bleeding Lactated Ringer's (Ringers, Lactated) 1,000 mls @ 150 mls/hr IV ASDIRECTED JOANN Last Admin: 12/31/19 08:48 Dose: 999 mls/hr Documented by: Ibuprofen (Motrin) 400 mg PO Q4H PRN PRN Reason: Pain Ibuprofen (Motrin) 800 mg PO Q6H PRN PRN Reason: Pain Last Admin: 01/01/20 05:30 Dose: 800 mg Documented by: Lidocaine HCl (Xylocaine 1%) 50 ml INJECT ONETIME PRN PRN Reason: Laceration repair Methylergonovine Maleate (Methergine) 0.2 mg IM ASDIRECTED PRN PRN Reason: Post Hemorrhage Oxycodone HCl (Oxycodone) 5 mg PO Q2H PRN PRN Reason: Pain Sodium Chloride (Saline Flush) 10 ml FLUSH ASDIRECTED PRN PRN Reason: Keep Vein Open Sodium Chloride (Saline Flush) 2.5 ml FLUSH ASDIRECTED PRN PRN Reason: Keep Vein Open Sodium Chloride (Normal Saline) 10 ml IV ASDIRECTED PRN PRN Reason: IV Use Sterile Water (Sterile Water For Irrigation) 1,000 ml IRR ASDIRECTED PRN PRN Reason: delivery Witch Cammy (Tucks) 1 pad TOP ASDIRECTED PRN PRN Reason: comfort care Discontinued Medications Butorphanol Tartrate (Stadol) 1 mg IVPUSH Q1H PRN PRN Reason: Pain Oxytocin/Sodium Chloride (Oxytocin 30 Unit/500 Ml-Ns) Confirm Administered Dose 30 unit in 500 mls @ as directed .ROUTE .STK-MED ONE Stop: 12/31/19 08:51 Misoprostol (Cytotec) 200 mcg PO ONETIME PRN PRN Reason: Post Hemorrhage Nalbuphine HCl (Nubain) 10 mg IVPUSH Q1H PRN PRN Reason: Pain (severe 7-10) - Recovery Exam Fundal Tone: Firm Fundal Level: 1 Fingerbreadths Below Umbilicus Fundal Placement: Midline Lochia Amount: Scant Lochia Color: Rubra/Red Bladder Status: Voiding - Exam General: Alert, Oriented Lungs: Normal Respiratory Effort Cardiovascular: Regular Rate, Regular Rhythm GI/Abdominal Exam: Normal Bowel Sounds, Non-Tender Extremities: Pedal Edema (trace). No: Carmelina's Sign Skin: Warm, Dry, Intact Neurological: No New Focal Deficit Psy/Mental Status: Alert, Normal Affect, Normal Mood - Problem List & Annotations (1) Vaginal delivery SNOMED Code(s): 142554033 Code(s): O80 - ENCOUNTER FOR FULL-TERM UNCOMPLICATED DELIVERY Status: Acute Priority: High Current Visit: No - Problem List Review Problem List Initiated/Reviewed/Updated: Yes - My Orders Last 24 Hours: My Active Orders 12/31/19 08:26 Patient Status [ADT] Routine Carboprost Tromethamine [Hemabate DS] 250 mcg IM ASDIRECTED PRN Lidocaine 1% [Xylocaine 1%] 50 ml INJECT ONETIME PRN Methylergonovine [Methergine] 0.2 mg IM ASDIRECTED PRN Sodium Chloride 0.9% [Normal Saline] 10 ml IV ASDIRECTED PRN Sodium Chloride 0.9% [Saline Flush] 10 ml FLUSH ASDIRECTED PRN Sodium Chloride 0.9% [Saline Flush] 2.5 ml FLUSH ASDIRECTED PRN Tranexamic Acid [Cyklokapron] 1,000 mg Sodium Chloride 0.9% [Normal Saline] 100 ml IV ONETIME Water For Irrigation,Sterile [Sterile Water for Irrigation] 1,000 ml IRR ASDIRECTED PRN Peripheral IV Insertion Adult [OM.PC] Routine Resuscitation Status Routine 12/31/19 08:30 RPR (SYPHILIS SERO) W/ RFLX [REF] Routine Lactated Ringers [Ringers, Lactated] 1,000 ml IV ASDIRECTED Oxytocin/0.9 % Sodium Chloride [Oxytocin 30 Unit/500 ML-NS] 30 unit in 500 ml IV TITRATE 12/31/19 10:23 Notify Provider Vital Signs [RC] ASDIRECTED Acetaminophen [Tylenol Extra Strength] 1,000 mg PO Q4H PRN Acetaminophen [Tylenol Extra Strength] 500 mg PO Q4H PRN Benzocaine/Menthol [Dermoplast Pain Relief 20%-0.5% [place]] 78 gm TOP ASDIRECTED PRN Docusate Sodium [Colace] 100 mg PO BID PRN Ibuprofen [Motrin] 400 mg PO Q4H PRN Ibuprofen [Motrin] 800 mg PO Q6H PRN Lanolin [Lansinoh HPA] See Dose Instructions TOP ASDIRECTED PRN bisacodyL [Dulcolax] 10 mg RECTAL ONETIME PRN oxyCODONE 5 mg PO Q2H PRN witch Cammy [Tucks] 1 pad TOP ASDIRECTED PRN 12/31/19 10:24 Patient Status [ADT] Routine May Shower [RC] ASDIRECTED Up ad Elva [RC] ASDIRECTED Vital Signs [RC] PER UNIT ROUTINE Assess Lochia [WOMSER] Per Unit Routine Assess Uterine Involution [WOMSER] Per Unit Routine Ice Therapy [OM.PC] Per Unit Routine Perineal Care [OM.PC] Per Unit Routine Peripheral IV Discontinue [OM.PC] Routine Sitz Bath [OM.PC] Per Unit Routine 12/31/19 10:25 Cooling Warming Measures [RC] ASDIRECTED 12/31/19 Lunch Regular Diet [DIET] 01/01/20 08:45 Ready for Discharge [RC] PER UNIT ROUTINE - Assessment Assessment:: PPD 1 status post - Plan Plan:: Doing well overall. Would like to go home today. Discharge instructions reviewed. Follow up at [facility] clinic 6 week. Patient requesting progestin only pill until then--ultimately would like paraguard IUD. Discharge to home.
--- NOTE | 2020-01-02 07:47 | PCM.DCSUM1 ---
Discharge Summary - Hospital Course Free Text/Narrative:: Discharge home. Follow up in the clinic in 6 weeks for routine visit. Diagnosis: Stroke: No Modified Kittson Scale: No Symptoms at All Modified Taurus Scale Score: 0 - Discharge Data Discharge Date: 01/02/20 Discharge Disposition: Home, Self-Care 01 Condition: Stable - Referral to Home Health Primary Care Physician: PCP None - Discharge Diagnosis/Problem(s) (1) Vacuum-assisted vaginal delivery SNOMED Code(s): 79200568709636472 ICD Code: Z37.9 - OUTCOME OF DELIVERY, UNSPECIFIED Status: Acute Priority: High Current Visit: Yes - Patient Summary/Data Operative Procedure(s) Performed: /IP - Patient Instructions Diet: Regular Diet as Tolerated Activity: No Strenuous Activities, Rest and Relax Today Showering/Bathing: May Shower Notify Provider of: Fever, Increased Pain, Nausea and/or Vomiting Other/Special Instructions: Pelvic rest for 6 weeks - Discharge Plan *PRESCRIPTION DRUG MONITORING PROGRAM REVIEWED*: Not Applicable *COPY OF PRESCRIPTION DRUG MONITORING REPORT IN PATIENT JOHNNIE: Not Applicable Prescriptions/Med Rec: Norethindrone [Ninfa] 0.35 mg PO DAILY #28 tablet Ibuprofen [Motrin] 800 mg PO Q6H PRN #90 tablet PRN Reason: Pain Home Medications: Home Meds Pnv No.95/Ferrous Fum/Folic AC [ Tablet] 1 tab PO DAILY 11/15/18 [History] Ibuprofen [Motrin] 800 mg PO Q6H PRN #90 tablet 01/03/19 [Rx] Norethindrone [Ninfa] 0.35 mg PO DAILY #28 tablet 01/01/20 [Rx] Ibuprofen [Motrin] 800 mg PO Q6H PRN #90 tablet 01/02/20 [Rx] Oxygen Therapy Mode: Room Air - Discharge Summary/Plan Comment DC Time >30 min.: Yes - General Info Date of Service: 01/02/20 Functional Status: Reports: Pain Controlled, Tolerating Diet, Ambulating, Urin ating - Review of Systems General: Reports: No Symptoms HEENT: Reports: No Symptoms Pulmonary: Reports: No Symptoms Cardiovascular: Reports: No Symptoms Gastrointestinal: Reports: No Symptoms Genitourinary: Reports: No Symptoms Musculoskeletal: Reports: No Symptoms Skin: Reports: No Symptoms Neurological: Reports: No Symptoms Psychiatric: Reports: No Symptoms - Patient Data Vitals - Most Recent: Last Vital Signs Temp 97.6 F 01/01/20 15:44 Pulse 76 01/01/20 20:30 Resp 17 01/01/20 20:30 BP 109/76 01/01/20 20:30 Pulse Ox 98 01/01/20 20:30 Weight - Most Recent: 206 lb Med Orders - Current: Current Medications Acetaminophen (Tylenol Extra Strength) 500 mg PO Q4H PRN PRN Reason: Pain Acetaminophen (Tylenol Extra Strength) 1,000 mg PO Q4H PRN PRN Reason: Pain Last Admin: 01/01/20 08:45 Dose: 1,000 mg Documented by: Benzocaine/Menthol (Dermoplast Pain Relief 20%-0.5% [place]) 78 gm TOP ASDIRECTED PRN PRN Reason: Perineal Comfort Measure Bisacodyl (Dulcolax) 10 mg RECTAL ONETIME PRN PRN Reason: Constipation Carboprost Tromethamine (Hemabate Ds) 250 mcg IM ASDIRECTED PRN PRN Reason: Post Hemorrhage Docusate Sodium (Colace) 100 mg PO BID PRN PRN Reason: Constipation Last Admin: 01/01/20 08:46 Dose: 100 mg Documented by: Emollient Ointment (Lansinoh Hpa) 0 gm TOP ASDIRECTED PRN PRN Reason: Sore Nipples Oxytocin/Sodium Chloride (Oxytocin 30 Unit/500 Ml-Ns) 30 unit in 500 mls @ 999 mls/hr IV TITRATE [facility] Last Admin: 12/31/19 10:12 Dose: 999 mls/hr Documented by: Tranexamic Acid 1,000 mg/ (Sodium Chloride) 110 mls @ 660 mls/hr IV ONETIME PRN PRN Reason: Bleeding Lactated Ringer's (Ringers, Lactated) 1,000 mls @ 150 mls/hr IV ASDIRECTED [facility] Last Admin: 12/31/19 08:48 Dose: 999 mls/hr Documented by: Ibuprofen (Motrin) 400 mg PO Q4H PRN PRN Reason: Pain Ibuprofen (Motrin) 800 mg PO Q6H PRN PRN Reason: Pain Last Admin: 01/01/20 11:18 Dose: 800 mg Documented by: Lidocaine HCl (Xylocaine 1%) 50 ml INJECT ONETIME PRN PRN Reason: Laceration repair Methylergonovine Maleate (Methergine) 0.2 mg IM ASDIRECTED PRN PRN Reason: Post Hemorrhage Oxycodone HCl (Oxycodone) 5 mg PO Q2H PRN PRN Reason: Pain Sodium Chloride (Saline Flush) 10 ml FLUSH ASDIRECTED PRN PRN Reason: Keep Vein Open Sodium Chloride (Saline Flush) 2.5 ml FLUSH ASDIRECTED PRN PRN Reason: Keep Vein Open Sodium Chloride (Normal Saline) 10 ml IV ASDIRECTED PRN PRN Reason: IV Use Sterile Water (Sterile Water For Irrigation) 1,000 ml IRR ASDIRECTED PRN PRN Reason: delivery Witch Cammy (Tucks) 1 pad TOP ASDIRECTED PRN PRN Reason: comfort care Discontinued Medications Butorphanol Tartrate (Stadol) 1 mg IVPUSH Q1H PRN PRN Reason: Pain Oxytocin/Sodium Chloride (Oxytocin 30 Unit/500 Ml-Ns) Confirm Administered Dose 30 unit in 500 mls @ as directed .ROUTE .[facility]-MED ONE Stop: 12/31/19 08:51 Misoprostol (Cytotec) 200 mcg PO ONETIME PRN PRN Reason: Post Hemorrhage Nalbuphine HCl (Nubain) 10 mg IVPUSH Q1H PRN PRN Reason: Pain (severe 7-10) - Exam General: Reports: Alert, Oriented, Cooperative, No Acute Distress Lungs: Reports: Normal Respiratory Effort Cardiovascular: Reports: Regular Rate, Regular Rhythm GI/Abdominal Exam: Soft, Non-Tender (Female) Exam: Deferred Rectal (Female) Exam: Deferred Back Exam: Reports: Normal Inspection, Full Range of Motion Extremities: Normal Inspection, Normal Range of Motion, Non-Tender, No Pedal Edema, Normal Capillary Refill Skin: Reports: Warm, Dry, Intact Neurological: Reports: No New Focal Deficit, Normal Speech, Normal Tone, Strength Equal Bilateral, Sensation Intact Psy/Mental Status: Reports: Alert, Normal Affect, Normal Mood
== END 2020-01-02 17:00 | disposition home or self-care (01) | DRG 807 ==
LOC: MW.OB 08:13 → MW.OBCHECK 08:13 → MW.OB 08:26 → OBSVTOIN 10:09 → MW.OB 12:20
PROVIDERS: ADMIT Obstetrics & Gynecology; ATTEND Obstetrics & Gynecology
PROC: 10E0XZZ Delivery of Products of Conception, External Approach (ICD-10-PCS; principal; 2019-12-31)
PROC: 10907ZC Drainage of Amniotic Fluid, Therapeutic from Products of Conception, Via Natural or Artificial Opening (ICD-10-PCS; 2019-12-31)
PROC: 00HU33Z Insertion of Infusion Device into Spinal Canal, Percutaneous Approach (ICD-10-PCS; 2019-12-31)
PROC: 3E0R3BZ Introduction of Anesthetic Agent into Spinal Canal, Percutaneous Approach (ICD-10-PCS; 2019-12-31)
DX: O24.429 Gestational diabetes mellitus in childbirth, unspecified control (principal); Z37.0 Single live birth; Z3A.37 37 weeks gestation of pregnancy; Z11.59 Encounter for screening for other viral diseases
CPT/HCPCS: 01967; 36415; 59025; 59409; 82803; 85014; 85018; 85027; 86592; 86850; 86900; 86901; A9270-GY; J2590; J7120; U0002

== ENCOUNTER 2020-05-09 18:19 | Emergency (ER) | payer SELFPAY ==
[2020-05-09] MEDS ORDERED: Sodium Chloride 0.9% 1,000 ML IV ONE (18:38)
[2020-05-09] MEDS ORDERED: Ondansetron 4 MG/2 ML SDV IVPUSH ONE (18:38)
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
[2020-05-09 19:22] LABS: BLOOD UREA NITROGEN,BUN 5 mg/dL (7.0-18.0); CARBON DIOXIDE,CO2 21.1 mmol/L (21.0-32.0); CHLORIDE,CL 106 mmol/L (98-107); GLUCOSE RANDOM 124 mg/dL (74-106); LIPASE 44 U/L (73-393); POTASSIUM,K 3.7 mmol/L (3.5-5.1); SODIUM,NA 142 mmol/L (136-145)
[2020-05-09] MEDS ORDERED: Alum Hydrox/Mag Hydrox/Simeth 15 ML, Metoclopramide 5 MG, Lidocaine 2% 5 ML PO ONE ×3 (19:26)
== END 2020-05-09 20:25 | disposition home or self-care (01) ==
LOC: MW.ED 18:19
DX: K52.9 Noninfective gastroenteritis and colitis, unspecified (principal); J45.909 Unspecified asthma, uncomplicated; F17.210 Nicotine dependence, cigarettes, uncomplicated; Z91.013 Allergy to seafood
CPT/HCPCS: 36415; 80053; 80305; 81001; 83690; 84703; 85025; 96374; 99284; A9270; J2405; J7030; 99283

== ENCOUNTER 2020-09-04 12:24 | Emergency (ER) | payer SELFPAY ==
[2020-09-04] MEDS ORDERED: Morphine 4 MG/ML Syringe IVPUSH ONE (13:47)
[2020-09-04] MEDS ORDERED: Acetaminophen/HYDROcodone 325-5 MG Tab PO ONE (14:24)
--- NOTE | 2020-09-04 14:55 | US ---
INDICATION: Pelvic pain. Evaluate for IUP. TECHNIQUE: Transvaginal scanning was performed to optimally evaluate the IUP and adnexa. Ovarian blood flow was evaluated with color-flow and pulsed Doppler. COMPARISON: None. FINDINGS: There is a living IUP with gestational age of 10 weeks 1 day by LMP and 8 weeks 4 days by today`s crown-rump length. EDC based on today`s crown-rump length is 04/12/2021. The embryonic heart rate is measured at 167 beats per minute. The placenta is not yet formed. No subchorionic hemorrhage is evident. The ovaries are normal is size and shape. The right ovary measures 3.1 x 2.9 x 2.3 cm and the left 2.6 x 2.3 x 1.7 cm. Ovarian blood flow is demonstrated with color-flow and pulsed Doppler. No adnexal mass is evident. A trace of physiologic free fluid is noted. IMPRESSION: 1. Living IUP with gestational age of 8 weeks 4 days by today`s crown-rump length and EDC of 04/12/2021. 2. No complication evident. Dictated by Alexx Nowak MD @ Sep 04 2020 2:49PM Signed by Dr. Alexx Nowak @ Sep 04 2020 2:53PM
[2020-09-04] MEDS ORDERED: Ondansetron 4 MG Tab.DIS PO ONE (16:12)
[2020-09-04] MEDS ORDERED: Ondansetron 4 MG/2 ML SDV IVPUSH ONE (16:27)
--- NOTE | 2020-09-04 17:05 | US ---
Indication: Right lower quadrant pain Technique: Multiple sonographic images of the right lower quadrant Comparison: None available Findings: The appendix is not visualized. No discrete fluid collection is seen. The right ovary measures 2.8 x 2.1 x 2.6 cm, containing an apparent 1.5 cm follicle, not well delineated on the recent transvaginal pelvic ultrasound. Right ovarian Doppler flow is documented. The visualized portions of the right common femoral artery and vein are patent. Impression: The appendix is not seen. Please note that sonographic nonvisualization of the appendix does not exclude appendicitis. If there is high clinical concern, further evaluation with noncontrast MRI may be of value. Dictated by Jean Claude Reveles MD @ Sep 04 2020 4:57PM Signed by Dr. Jean Claude Reveles @ Sep 04 2020 5:02PM
--- NOTE | 2020-09-04 17:57 | EDM.PDOC ---
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 The patient states that her last menstrual period was June 25, 2020. She states that starting yesterday she started to experience abdominal pain located in the lower quadrant of her abdomen which she describes as right lower quadrant. She describes it as crampy with radiation to her back. She rates her pain as 4-5 out of 10. She cannot identify any aggravating or relieving factors. She denies any dysuria, hematuria, vaginal discharge or vaginal bleeding. She denies any fever or chills but states that she does feel mildly nauseous. She denies any vomiting. She denies any history of nephrolithiasis. She states that she has not seen an agricultural mechanic for this as she just found out 1 week ago. REVIEW OF SYSTEMS: Constitutional: Denies fever, chills. Eyes: Denies eye pain Ears, Nose, Mouth, & Throat: Denies earache Cardiovascular: Denies chest pain Respiratory: Denies shortness of breath Gastrointestinal: Positive for abdominal pain. Denies Nausea, vomiting, d iarrhea, hematochezia. Genitourinary: Denies hematuria, vaginal bleeding, vaginal discharge Skin:Denies a rash MSK: Denies joint pain Neurological: Denies blurred vision Psychiatric: Denies depression PAST MEDICAL HISTORY: As per history of present illness and as reviewed below otherwise noncontributory. SURGICAL HISTORY: As per history of present illness and as reviewed below otherwise noncontributory. LMP: June 17, 2020 SOCIAL HISTORY: As per history of present illness and as reviewed below otherwise noncontributory. FAMILY HISTORY: As per history of present illness and as reviewed below otherwise noncontributory. EXAMINATION OF ORGAN SYSTEMS/BODY AREAS: Constitutional: Blood pressure was 101/69, heart rate 75, respiratory rate 16 with an oxygen saturation 96% on room air. Temperature 36.3 General: Anxious appearing woman who appears to be in a mild amount of pain Psychiatric: Anxious appearing but cooperative Eyes: No scleral icterus or conjunctival erythema ENMT: Moist mucous membranes. No pharyngeal erythema Cardiovascular: Regular, rate, and rhythm. No gallops, murmurs, or rubs. Bilateral upper extremity pulses symmetric and intact. No peripheral edema. No JVD. Respiratory: Lungs clear to auscultation bilaterally. No wheezes, rales, or rhonchi. Gastrointestinal: Soft, non-tender, non-distended. Normoactive bowel sounds negative Aranda's and McBurney Genitourinary: Suprapubic tenderness to palpation. No CVA tenderness. Musculoskeletal: Normal range of motion. Skin: No lesions or abrasions. Neurological: Alert, GCS 15 MEDICAL DECISION MAKING AND COURSE IN THE ED WITH INTERPRETATION/REVIEW OF DIAGNOSTIC STUDIES: This is a 35-year-old woman G6, P5 with possible prior tubal who comes to the emergency department with suprapubic tenderness and who has stable vital signs. At this time given the patient has not had any prior work-up for will evaluate for intrauterine . Will obtain CBC, quantitative hCG, type and screen, urinalysis and a transvaginal ultrasound. Differential also includes acute cystitis, appendicitis. Patient stated after initial interaction that she is from a male that she had unprotected sex with once. She would like to be tested for STDs. Therefore will obtain swabs. We will provide the patient with morphine and Zofran for pain and nausea. Laboratory: CBC is unremarkable. Quantitative hCG is 68,913. Type and screen is O+ antibody negative. Heather is negative, BV is positive, trichomonas negative. Urinalysis was a clean catch and was negative for leukocyte esterase, negative for nitrites, and negative for blood. Interpretation: Negative. The radiological images were viewed by myself along with reading the report from the radiologist. OB transvaginal ultrasound reveals a living intrauterine with gestational sac of 8 weeks and 4 days. No subchorionic hemorrhage. No placenta is formed just yet. No adnexal masses are evident and there is trace physiologic free fluid. On reevaluation, the patient stated her pain had improved. I did discuss her at this time all of her results. I discussed that we be starting her on MetroGel for the bacterial vaginosis. At this time I would like to evaluate the patient for p.o. toleration and observe her for continued pain. Patient was able to eat a partial sandwich however her pain did worsen and she had some nausea therefore I provided the patient with Zofran for nausea relief and we will obtain a limited ultrasound of the right lower quadrant as her initial complaint was right lower quadrant pain however there was no McBurney sign or tenderness on the right lower quadrant. We will reevaluate for appendicitis. The radiological images were viewed by myself along with reading the report from the radiologist. Right lower quadrant limited abdominal ultrasound does not reveal any discrete fluid collection. There is an apparent 1.5 cm follicle on the right ovary. Appendix is not visualized. After imaging the patient's pain had improved. At this time given normal labs and improved pain I do believe appendicitis is low risk. This could be secondary to round ligament pain versus normal pain during . I did discuss with her that she would be stable for discharge. I discussed that if she had a new or worsening symptoms such as fever, worsening right lower quadran t pain she need to return to the emergency department. She is to follow-up with her agricultural mechanic within 1 week for management of her . She was amenable to discharge at this time and had no further questions DISPOSITION: The patient was discharged home in stable condition. The patient will follow up with agricultural mechanic in 5 days CONDITION: Fair PROCEDURES: None FINAL IMPRESSION(S)/DIAGNOSES: 1. Acute suprapubic/right lower quadrant abdominal pain, unknown etiology 2. Acute nausea likely secondary to Pa Lu M.D. RLQ Pain Score (Numeric/FACES): 5 - Related Data Allergies Allergy/AdvReac Type Severity Reaction Status Date / Time shellfish derived Allergy Hives Verified 09/04/20 12:35 Home Meds: Home Meds Ondansetron [Zofran ODT] 4 mg PO Q6H PRN #8 tab.dis 05/09/20 [Rx] #103/Iron Fumarate/Fa [ ] 1 tab PO DAILY 09/04/20 [History] metroNIDAZOLE [Metrogel-Vaginal] 70 gm VG DAILY #5 gel.w.appl 09/04/20 [Rx] metroNIDAZOLE [Metronidazole] 250 mg PO TID #21 tablet 09/04/20 [Rx] Past Medical History HEENT History: Reports: Other (See Below) Other HEENT History: collapsed sinuses Cardiovascular History: Reports: Aneurysm Respiratory History: Reports: Asthma Gastrointestinal History: Reports: None Genitourinary History: Reports: None 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: Musculoskeletal History: Reports: None Other Musculoskeletal History: Skull fracture Neurological History: Reports: Cerebral Aneurysms, Other (See Below) Psychiatric History: Reports: None Endocrine/Metabolic History: Reports: Diabetes, Gestational Hematologic History: Reports: None Immunologic History: Reports: None Oncologic (Cancer) History: Reports: None Dermatologic History: Reports: None - Infectious Disease History Infectious Disease History: Reports: None - Past Surgical History Head Surgeries/Procedures: Reports: None HEENT Surgical History: Reports: None Cardiovascular Surgical History: Reports: Aneurysm Respiratory Surgical History: Reports: None GI Surgical History: Reports: None Female Surgical History: Reports: None Endocrine Surgical History: Reports: None Neurological Surgical History: Reports: Other (See Below) Other Neurological Surgeries/Procedures: Head Surgery Musculoskeletal Surgical History: Reports: None Oncologic Surgical History: Reports: None Dermatological Surgical History: Reports: None Social & Family History - Family History Family Medical History: No Pertinent Family History HEENT: Reports: None GI: Reports: Other (See Below) Other GI Family History: Mother had liver tumor Oncologic: Reports: Liver - Tobacco Use Packs/Tins Daily: 1 - Caffeine Use Caffeine Use: Reports: None - Recreational Drug Use Recreational Drug Use: Yes Recreational Drug Type: Reports: Marijuana/Hashish Recreational Drug Use Frequency: Socially ED ROS GENERAL - Review of Systems Review Of Systems: See Below ED EXAM, GENERAL - Physical Exam Exam: See Below Course - Vital Signs Last Recorded V/S: Last Vital Signs Temp 37.1 C 09/04/20 18:25 Pulse 73 09/04/20 18:25 Resp 16 09/04/20 18:25 BP 93/42 L 09/04/20 18:25 Pulse Ox 97 09/04/20 18:25 - Orders/Labs/Meds Orders: Active Orders 24 hr Category Date Time Status CHLAMYDIA AND GONORRHEA BY [facility] Stat Lab 09/04/20 13:45 Received Labs: Laboratory Tests 09/04/20 09/04/20 09/04/20 Range/Units 13:20 13:32 13:32 WBC 8.15 (4.0-11.0) K/uL RBC 4.37 (4.30-5.90) M/uL Hgb 13.2 (12.0-16.0) g/dL Hct 39.4 (36.0-46.0) % MCV 90.2 (80.0-98.0) fL MCH 30.2 (27.0-32.0) pg MCHC 33.5 (31.0-37.0) g/dL RDW Std Deviation 47.5 (28.0-62.0) fl RDW Coeff of Fareed 15 (11.0-15.0) % Plt Count 185 (150-400) K/uL MPV 12.30 H (7.40-12.00) fL Neut % (Auto) 71.5 (48.0-80.0) % Lymph % (Auto) 20.0 (16.0-40.0) % [place] % (Auto) 7.2 (0.0-15.0) % Eos % (Auto) 1.1 (0.0-7.0) % Baso % (Auto) 0.2 (0.0-1.5) % Neut # (Auto) 5.8 H (1.4-5.7) K/uL Lymph # (Auto) 1.6 (0.6-2.4) K/uL [place] # (Auto) 0.6 (0.0-0.8) K/uL Eos # (Auto) 0.1 (0.0-0.7) K/uL Baso # (Auto) 0.0 (0.0-0.1) K/uL Nucleated RBC % 0.0 /100WBC Nucleated RBCs # 0 K/uL HCG, Quant 60744.0 mIU/mL Urine Color YELLOW Urine Appearance CLEAR Urine pH 8.0 (5.0-8.0) Ur Specific [place] 1.015 (1.001-1.035) Urine Protein NEGATIVE (NEGATIVE) mg/dL Urine Glucose (UA) NEGATIVE (NEGATIVE) mg/dL Urine Ketones NEGATIVE (NEGATIVE) mg/dL Urine Occult Blood NEGATIVE (NEGATIVE) Urine Nitrite NEGATIVE (NEGATIVE) Urine Bilirubin NEGATIVE (NEGATIVE) Urine Urobilinogen 0.2 (<2.0) EU/dL Ur Leukocyte Esterase NEGATIVE (NEGATIVE) Heather species DNA (NEGATIVE) Gardnerella DNA Probe (NEGATIVE) Trichomonas DNA Probe (NEGATIVE) Blood Type Antibody Screen 09/04/20 09/04/20 Range/Units 13:32 13:45 WBC (4.0-11.0) K/uL RBC (4.30-5.90) M/uL Hgb (12.0-16.0) g/dL Hct (36.0-46.0) % MCV (80.0-98.0) fL MCH (27.0-32.0) pg MCHC (31.0-37.0) g/dL RDW Std Deviation (28.0-62.0) fl RDW Coeff of Fareed (11.0-15.0) % Plt Count (150-400) K/uL MPV (7.40-12.00) fL Neut % (Auto) (48.0-80.0) % Lymph % (Auto) (16.0-40.0) % [place] % (Auto) (0.0-15.0) % Eos % (Auto) (0.0-7.0) % Baso % (Auto) (0.0-1.5) % Neut # (Auto) (1.4-5.7) K/uL Lymph # (Auto) (0.6-2.4) K/uL [place] # (Auto) (0.0-0.8) K/uL Eos # (Auto) (0.0-0.7) K/uL Baso # (Auto) (0.0-0.1) K/uL Nucleated RBC % /100WBC Nucleated RBCs # K/uL HCG, Quant mIU/mL Urine Color Urine Appearance Urine pH (5.0-8.0) Ur Specific [place] (1.001-1.035) Urine Protein (NEGATIVE) mg/dL Urine Glucose (UA) (NEGATIVE) mg/dL Urine Ketones (NEGATIVE) mg/dL Urine Occult Blood (NEGATIVE) Urine Nitrite (NEGATIVE) Urine Bilirubin (NEGATIVE) Urine Urobilinogen (<2.0) EU/dL Ur Leukocyte Esterase (NEGATIVE) Heather species DNA NEGATIVE (NEGATIVE) Gardnerella DNA Probe POSITIVE H (NEGATIVE) Trichomonas DNA Probe NEGATIVE (NEGATIVE) Blood Type O POSITIVE Antibody Screen NEGATIVE Meds: Medications Discontinued Medications Generic Name Dose Route Start Last Admin Trade Name Freq PRN Reason Stop Dose Admin Hydrocodone Bitart/Acetaminophen 1 tab 09/04/20 14:24 09/04/20 14:31 Acetaminophen/Hydrocodone 325-5 Mg Tab PO 09/04/20 14:25 1 tab ONETIME ONE Administration Morphine Sulfate 4 mg 09/04/20 13:47 09/04/20 14:25 Morphine 4 Mg/Ml Syringe IVPUSH 09/04/20 13:48 Not Given ONETIME ONE Ondansetron HCl 4 mg 09/04/20 16:12 09/04/20 16:39 Ondansetron 4 Mg Tab.Dis PO 09/04/20 16:13 Not Given ONETIME ONE Ondansetron HCl 4 mg 09/04/20 16:27 09/04/20 16:37 Ondansetron 4 Mg/2 Ml Sdv IVPUSH 09/04/20 16:28 4 mg ONETIME ONE Administration Departure - Departure Time of Disposition: 17:56 Disposition: Home, Self-Care 01 Condition: Fair Clinical Impression: Pelvic pain, - Discharge Information *PRESCRIPTION DRUG MONITORING PROGRAM REVIEWED*: No *COPY OF PRESCRIPTION DRUG MONITORING REPORT IN PATIENT JOHNNIE: No Prescriptions: metroNIDAZOLE [Metrogel-Vaginal] 70 gm VG DAILY #5 gel.w.appl metroNIDAZOLE [Metronidazole] 250 mg PO TID #21 tablet Instructions: Round Ligament Pain, Bacterial Vaginosis, [id number] Referrals: PCP,None [Primary Care Provider] - Forms: ED Department Discharge Additional Instructions: You evaluate today on an emergent basis. At this time your appears to be normal. We did find that you had bacterial vaginosis. I prescribed you MetroGel to be used once a day at bedtime for the next 5 days. At this time the ultrasound of your appendix did not see the appendix therefore I do want you to monitor your symptoms and if the pain in the right lower quadrant worsens you start having fever or vomiting please return to the emergency department. As discussed this could be round ligament pain. I do recommend that she follow-up with an agricultural mechanic for continued monitoring of your . [facility] [address] [place] [id number] [facility] [address] [place] [id number] The patient is informed of any results of their evaluation and diagnostic workup and all questions are answered. They are given discharge instructions and return precautions. The patient is stable for discharge. The patient states they understand and agree with the plan and that they will return if their symptoms get worse or if they have any new concerns. The following information is given to patients seen in the emergency department who are being discharged to home. This information is to outline your options for follow-up care. We provide all patients seen in our emergency department with a follow-up referral. The need for follow-up, as well as the timing and circumstances, are variable depending upon the specifics of your emergency department visit. If you don't have a primary care physician on staff, we will provide you with a referral. We always advise you to contact your personal physician following an emergency department visit to inform them of the circumstance of the visit and for follow-up with them and/or the need for any referrals to a consulting specialist. The emergency department will also refer you to a specialist when appropriate. This referral assures that you have the opportunity for follow-up care with a specialist. All of these measure are taken in an effort to provide you with optimal care, which includes your follow-up. Under all circumstances we always encourage you to contact your private physician who remains a resource for coordinating your care. When calling for follow-up care, please make the office aware that this follow-up is from your recent emergency room visit. If for any reason you are refused follow-up, please contact the [facility] Emergency Department at and asked to speak to the emergency department charge nurse. Sepsis Event Note (ED) - Evaluation Sepsis Screening Result: No Definite Risk - My Orders Last 24 Hours: My Active Orders 09/04/20 13:45 [facility] Stat - Assessment/Plan Last 24 Hours: My Active Orders 09/04/20 13:45 CHLAMYDIA AND GONORRHEA BY [facility] Stat
[2020-09-06 16:07] LABS: C.TRACHOMATIS BY TMA Negative (Negative); N.GONORRHOEAE BY TMA Negative (Negative)
== END 2020-09-04 18:25 | disposition home or self-care (01) ==
LOC: MW.ED 12:24
DX: O99.891 Other specified diseases and conditions complicating pregnancy (principal); R10.2 Pelvic and perineal pain; R10.31 Right lower quadrant pain; R11.0 Nausea; O99.511 Diseases of the respiratory system complicating pregnancy, first trimester; J45.909 Unspecified asthma, uncomplicated; Z72.0 Tobacco use; Z91.013 Allergy to seafood; Z3A.08 8 weeks gestation of pregnancy
CPT/HCPCS: 36415; 76705; 76817; 81003; 84702; 85025; 86850; 86900; 86901; 87480; 87491; 87510; 87591; 87660; 96374; 99284; A9270; J2405

== ENCOUNTER 2020-09-14 00:24 | Emergency (ER) | payer SELFPAY ==
--- NOTE | 2020-09-14 00:59 | EDM.PDOC ---
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 She felt that running down her leg when she got up after she felt a sensation that there was something in her pants. It happened at 1130 this evening and she bled for a little while but then slowed down and almost stopped. She is not wearing a pad now and not soiling her pants. The patient was seen here by my partner who did an ult rasound to verify that she was . I have checked her Rh type she is O+ in our lab. Patient is not weak dizzy or sweaty. The patient is a Ab2. Review of systems: As per history of present illness and below otherwise all systems reviewed and negative. Past medical history: As per history of present illness and as reviewed below otherwise noncontributory. Surgical history: As per history of present illness and as reviewed below otherwise noncontributory. Social history: No reported history of drug or alcohol abuse. Family history: As per history of present illness and as reviewed below otherwise noncontributory. Physical exam: Constitutional - well developed, well-nourished and in no acute distress HEENT - normocephalic, no evidence of trauma - external nose and mouth normal - no mass in neck and no JVD - mucosae moist EYES - full EOM, PERRL, no icterus - no evidence of inflammation, injection, or drainage Respiratory - no respiratory distress, equal bilateral expansion, lungs clear to auscultation and no abnormal lung sounds Cardiovascular - Regular Rhythm with S1 and S2 appreciated and no murmur, gallop or rub. GI - abdomen soft without distension or organomegaly - normal bowel sounds - no guard or rebound Musculoskeletal no gross deformity of long bones or joints - no tenderness, swelling or edema Neurologic - Alert and oriented times four - CN II-XII grossly intact - motor sensory and coordination symmetrically normal Psychiatric - appropriate mood and affect with normal thought content Hematologic - No petechiae or purpura - mucosa appropriate color and sclera not pale - normal nail bed color and refill Integument - no rash or evidence of trauma - normal turgor Diagnostics: [] Therapeutics: [] Impression: [] Plan: [] Definitive disposition and diagnosis as appropriate pending reevaluation and review of above. 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: Musculoskeletal History: Reports: None Other Musculoskeletal History: Skull fracture Neurological History: Reports: Cerebral Aneurysms, Other (See Below) Psychiatric History: Reports: None Endocrine/Metabolic History: Reports: Diabetes, Gestational Hematologic History: Reports: None Immunologic History: Reports: None Oncologic (Cancer) History: Reports: None Dermatologic History: Reports: None - Infectious Disease History Infectious Disease History: Reports: Chicken Pox - Past Surgical History Head Surgeries/Procedures: Reports: None HEENT Surgical History: Reports: None Cardiovascular Surgical History: Reports: Aneurysm Respiratory Surgical History: Reports: None GI Surgical History: Reports: None Female Surgical History: Reports: None Endocrine Surgical History: Reports: None Neurological Surgical History: Reports: Other (See Below) Other Neurological Surgeries/Procedures: Head Surgery Musculoskeletal Surgical History: Reports: None Oncologic Surgical History: Reports: None Dermatological Surgical History: Reports: None Social & Family History - Family History Family Medical History: No Pertinent Family History HEENT: Reports: None GI: Reports: Other (See Below) Other GI Family History: Mother had liver tumor Oncologic: Reports: Liver - Tobacco Use Tobacco Use Status *Q: Current Every Day Tobacco User Years of Tobacco use: 20 Packs/Tins Daily: 0.5 - Caffeine Use Caffeine Use: Reports: None - Recreational Drug Use Recreational Drug Use: No ED ROS GENERAL - Review of Systems Review Of Systems: Comprehensive ROS is negative, except as noted in HPI. ED EXAM, GENERAL - Physical Exam Exam: See Below Free Text/Narrative:: My physical exam is in the HPI Course - Vital Signs Text/Narrative:: Discussed findings with Bonita Pepe. Patient is ambulatory without any blood loss. Discharged in satisfactory condition. Last Recorded V/S: Last Vital Signs Temp 35.9 C L 09/14/20 00:37 Pulse 82 09/14/20 02:29 Resp 16 09/14/20 02:29 BP 107/59 L 09/14/20 02:29 Pulse Ox 99 09/14/20 02:29 - Orders/Labs/Meds Labs: Laboratory Tests 09/14/20 09/14/20 Range/Units 01:15 01:15 WBC 10.93 (4.0-11.0) K/uL RBC 4.24 L (4.30-5.90) M/uL Hgb 12.8 (12.0-16.0) g/dL Hct 37.9 (36.0-46.0) % MCV 89.4 (80.0-98.0) fL MCH 30.2 (27.0-32.0) pg MCHC 33.8 (31.0-37.0) g/dL RDW Std Deviation 47.1 (28.0-62.0) fl RDW Coeff of Fareed 15 (11.0-15.0) % Plt Count 174 (150-400) K/uL MPV 11.50 (7.40-12.00) fL Neut % (Auto) 75.4 (48.0-80.0) % Lymph % (Auto) 17.6 (16.0-40.0) % [place] % (Auto) 6.2 (0.0-15.0) % Eos % (Auto) 0.6 (0.0-7.0) % Baso % (Auto) 0.2 (0.0-1.5) % Neut # (Auto) 8.2 H (1.4-5.7) K/uL Lymph # (Auto) 1.9 (0.6-2.4) K/uL [place] # (Auto) 0.7 (0.0-0.8) K/uL Eos # (Auto) 0.1 (0.0-0.7) K/uL Baso # (Auto) 0.0 (0.0-0.1) K/uL HCG, Quant 09332.0 mIU/mL Departure - Departure Time of Disposition: 04:23 Disposition: Home, Self-Care 01 Condition: Good Clinical Impression: Threatened - Discharge Information Instructions: Transvaginal Ultrasound, Warning Signs During , Vaginal Bleeding During , First Trimester Referrals: PCP,None [Primary Care Provider] - Forms: ED Department Discharge Additional Instructions: The following information is given to patients seen in the emergency department who are being discharged to home. This information is to outline your options for follow-up care. We provide all patients seen in our emergency department with a follow-up referral. The need for follow-up, as well as the timing and circumstances, are variable depending upon the specifics of your emergency department visit. If you don't have a primary care physician on staff, we will provide you with a referral. We always advise you to contact your personal physician following an emergency department visit to inform them of the circumstance of the visit and for follow-up with them and/or the need for any referrals to a consulting specialist. The emergency department will also refer you to a specialist when appropriate. This referral assures that you have the opportunity for follow-up care with a specialist. All of these measure are taken in an effort to provide you with optimal care, which includes your follow-up. Under all circumstances we always encourage you to contact your private physician who remains a resource for coordinating your care. When calling for follow-up care, please make the office aware that this follow-up is from your recent emergency room visit. If for any reason you are refused follow-up, please contact the [facility] Emergency Department at and asked to speak to the emergency department charge nurse. Sepsis Event Note (ED) - Evaluation Sepsis Screening Result: No Definite Risk - Focused Exam Vital Signs: Vital Signs Temp Pulse Resp BP Pulse Ox 09/14/20 02:29 82 16 107/59 L 99 09/14/20 00:37 35.9 C L 96 18 109/56 L 96
--- NOTE | 2020-09-14 03:52 | US ---
INDICATION: , bleeding TECHNIQUE: Ultrasound OB pelvis transvaginal. Real-time preston-scale imaging of the pelvis was performed. COMPARISON: Pelvic ultrasound 09/04/2020 FINDINGS: Clinical age: 10 weeks 0 days Sonographic imaging demonstrates a single living intrauterine gestation. The embryo demonstrates a regular cardiac rate measuring 171 beats per minute. The embryo`s crown rump length measurement of 3.4 cm corresponds to a gestational age of 10 weeks 2 days. There is a normal appearing yolk sac. There are no gross abnormalities noted within the embryo at this early state of development. The placenta has not yet developed. Heterogeneous hypoechoic area near the internal loss measuring 2.7 x 2.6 x 2.4 centimeters. No adnexal mass. There are no suspicious fluid collections noted in the cul-de-sac. IMPRESSION: 1. Single live intrauterine gestation with a clinical age of 10 weeks 0 days. 2. Heterogeneous hypoechoic collection adjacent to the internal os measuring up to 2.7 centimeters consistent with a perigestational bleed. Dictated by Adan Horne MD @ Sep 14 2020 3:47AM Signed by Dr. Adan Horne @ Sep 14 2020 3:50AM
== END 2020-09-14 04:30 | disposition home or self-care (01) ==
LOC: MW.ED 00:24
DX: O20.0 Threatened abortion (principal); O99.511 Diseases of the respiratory system complicating pregnancy, first trimester; J45.909 Unspecified asthma, uncomplicated; Z72.0 Tobacco use; Z91.013 Allergy to seafood; Z3A.12 12 weeks gestation of pregnancy
CPT/HCPCS: 36415; 76817; 76817-26; 84702; 85025; 99283; 99284-25

== ENCOUNTER 2020-10-18 03:15 | Observation (INO) | payer SELFPAY ==
[2020-10-18] MEDS ORDERED: Sodium Chloride 0.9% 10 ML Syringe FLUSH PRN (03:27)
[2020-10-18] MEDS ORDERED: Sodium Chloride 0.9% 2.5 ML Syringe FLUSH PRN (03:27)
[2020-10-18] MEDS ORDERED: Sodium Chloride 0.9% 1,000 ML IV ONE (03:28)
[2020-10-18] MEDS ORDERED: Metoclopramide 10 MG/2 ML SDV IVPUSH ONE (03:31)
--- NOTE | 2020-10-18 03:32 | EDM.PDOC ---
ED HPI GENERAL MEDICAL PROBLEM - General Chief Complaint: Abdominal Pain Stated Complaint: VOMITING Time Seen by Provider: 10/18/20 03:17 - History of Present Illness INITIAL COMMENTS - FREE TEXT/NARRATIVE: History of present illness: [] The patient is hard to understand because she is screaming that she needs something. She does slow enough to tell me that she needs something for nausea. She says she suddenly got nauseated and started vomiting 2 hours ago. The patient says she is . She told EMS that this happens to her when she is . She is a G6, P5. Patient also told EMS that she takes marijuana for nausea. She says she did have some in the morning earlier in the day. Again the patient is difficult to understand because she is so busy moaning and crying. She says her abdomen hurts in the right upper quadrant. Review of systems: As per history of present illness and below otherwise all systems reviewed and negative. Past medical history: As per history of present illness and as reviewed below otherwise noncontributory. Surgical history: As per history of present illness and as reviewed below otherwise noncontributory. Social history: No reported history of drug or alcohol abuse. Family history: As per history of present illness and as reviewed below otherwise noncontributory. Physical exam: Constitutional - well developed, well-nourished and in moderate acute distress HEENT - normocephalic, no evidence of trauma - external nose and mouth normal - no mass in neck and no JVD - mucosae moist EYES - full EOM, PERRL, no icterus - no evidence of inflammation, injection, or drainage Respiratory - no respiratory distress, equal bilateral expansion, lungs clear to auscultation and no abnormal lung sounds Cardiovascular - Regular Rhythm with S1 and S2 appreciated and no murmur, gallop or rub. GI - abdomen soft without distension or organomegaly - normal bowel sounds - no guard or rebound Musculoskeletal no gross deformity of long bones or joints - no tenderness, s welling or edema Neurologic - Alert and oriented times four - CN II-XII grossly intact - motor sensory and coordination symmetrically normal Psychiatric -patient distraught and upset. She is crying out. Hematologic - No petechiae or purpura - mucosa appropriate color and sclera not pale - normal nail bed color and refill Integument - no rash or evidence of trauma - normal turgor Diagnostics: [] Therapeutics: [] Impression: [] Plan: [] Definitive disposition and diagnosis as appropriate pending reevaluation and review of above. - Related Data Allergies Allergy/AdvReac Type Severity Reaction Status Date / Time shellfish derived Allergy Hives Verified 10/18/20 03:26 Home Meds: Home Meds #103/Iron Fumarate/Fa [ ] 1 tab PO DAILY 09/04/20 [History] Doxylamine Succinate/Vit B6 [Doxylamine-Pyridoxine 10-10 mg] 2 each PO QPM #30 tablet. 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: Musculoskeletal History: Reports: None Other Musculoskeletal History: Skull fracture Neurological History: Reports: Cerebral Aneurysms, Other (See Below) Psychiatric History: Reports: None Endocrine/Metabolic History: Reports: Diabetes, Gestational Hematologic History: Reports: None Immunologic History: Reports: None Oncologic (Cancer) History: Reports: None Dermatologic History: Reports: None - Infectious Disease History Infectious Disease History: Reports: Chicken Pox - Past Surgical History Head Surgeries/Procedures: Reports: None HEENT Surgical History: Reports: None Cardiovascular Surgical History: Reports: Aneurysm Respiratory Surgical History: Reports: None GI Surgical History: Reports: None Female Surgical History: Reports: None Endocrine Surgical History: Reports: None Neurological Surgical History: Reports: Other (See Below) Other Neurological Surgeries/Procedures: Head Surgery Musculoskeletal Surgical History: Reports: None Oncologic Surgical History: Reports: None Dermatological Surgical History: Reports: None Social & Family History - Family History Family Medical History: No Pertinent Family History HEENT: Reports: None GI: Reports: Other (See Below) Other GI Family History: Mother had liver tumor Oncologic: Reports: Liver - Caffeine Use Caffeine Use: Reports: None ED ROS GENERAL - Review of Systems Review Of Systems: Comprehensive ROS is negative, except as noted in HPI. ED EXAM, GENERAL - Physical Exam Exam: See Below Free Text/Narrative:: My physical exam is in the HPI Course - Vital Signs Text/Narrative:: 0353 hrs. patient is calmer and able to talk. She says she has had hyperemesis before but never had the diarrhea as well. She claims she has a lot of diarrhea now this time as well. She says we can call her mom to come get her child. This time she said she made a chicken sandwich with food she had gotten from the food pantry and was not sure that it had been stored properly. 4:25 AM the patient is incontinent of stool. She has been to the bathroom twice in the last 30 minutes to have diarrhea stool. Discussed with Dr. Frederick and under the circumstances if there is nothing else I can do to get it under control there is no evidence that Imodium causes problems for the baby although it is not well studied. Under the circumstances in order to avoid having to admit the patient and find someone to take custody of her small child is here with her I am going to try Imodium and see if we can slow down her diarrhea and get her symptoms under control. 529 hours DCFS is here and has assessed that the grandmother is not capable to take care of the child. Arrangements will be made for placement. The mother is still complaining of nausea. After her fourth medication type is being tried I discussed with Dr. Frederick and we put the patient on observation status. Last Recorded V/S: Last Vital Signs Temp 35.6 C L 10/18/20 03:26 Pulse 87 10/18/20 04:38 Resp 20 10/18/20 04:38 BP 128/76 10/18/20 04:38 Pulse Ox 98 10/18/20 04:38 - Orders/Labs/Meds Orders: Active Orders 24 hr Category Date Time Status Admission Status [Patient Status] [ADT] Stat ADT 10/18/20 05:47 Ordered Heart Tones [RC] ASDIRECTED Care 10/18/20 03:29 Active CORONAVIRUS COVID-19 NITZA [MOLEC] Stat Lab 10/18/20 05:48 Ordered DRUG SCREEN, URINE [URCHEM] Stat Lab 10/18/20 03:27 Ordered UA W/PROSPER RFLX IF INDICATED [URIN] Stat Lab 10/18/20 03:28 Ordered D5 1/2 NS w/ 40 mEq/L KCl 1,000 ml Med 10/18/20 05:45 Active IV ASDIRECTED Sodium Chloride 0.9% [Saline Flush] Med 10/18/20 03:27 Active 10 ml FLUSH ASDIRECTED PRN Sodium Chloride 0.9% [Saline Flush] Med 10/18/20 03:27 Active 2.5 ml FLUSH ASDIRECTED PRN Saline Lock Insert [OM.PC] Stat Oth 10/18/20 03:27 Ordered Medication Orders Potassium Chloride/Dextrose/Sod Cl (D5 1/2 Ns W/ 40 Meq/L Kcl) 1,000 mls @ 150 mls/hr IV ASDIRECTED JOANN Sodium Chloride (Sodium Chloride 0.9% 10 Ml Syringe) 10 ml FLUSH ASDIRECTED PRN PRN Reason: Keep Vein Open Last Admin: 10/18/20 03:46 Dose: 10 ml Documented by: GIOVANI Sodium Chloride (Sodium Chloride 0.9% 2.5 Ml Syringe) 2.5 ml FLUSH ASDIRECTED PRN PRN Reason: Keep Vein Open Last Admin: 10/18/20 03:47 Dose: 2.5 ml Documented by: GIOVANI Labs: Laboratory Tests 10/18/20 10/18/20 Range/Units 04:00 04:00 WBC 16.43 H (4.0-11.0) K/uL RBC 4.54 (4.30-5.90) M/uL Hgb 14.3 (12.0-16.0) g/dL Hct 41.4 (36.0-46.0) % MCV 91.2 (80.0-98.0) fL MCH 31.5 (27.0-32.0) pg MCHC 34.5 (31.0-37.0) g/dL RDW Std Deviation 49.0 (28.0-62.0) fl RDW Coeff of Fareed 15 (11.0-15.0) % Plt Count 176 (150-400) K/uL MPV 11.80 (7.40-12.00) fL Neut % (Auto) 84.2 H (48.0-80.0) % Lymph % (Auto) 10.7 L (16.0-40.0) % [place] % (Auto) 4.7 (0.0-15.0) % Eos % (Auto) 0.2 (0.0-7.0) % Baso % (Auto) 0.2 (0.0-1.5) % Neut # (Auto) 13.8 H (1.4-5.7) K/uL Lymph # (Auto) 1.8 (0.6-2.4) K/uL [place] # (Auto) 0.8 (0.0-0.8) K/uL Eos # (Auto) 0.0 (0.0-0.7) K/uL Baso # (Auto) 0.0 (0.0-0.1) K/uL Nucleated RBC % 0.0 /100WBC Nucleated RBCs # 0 K/uL Sodium 139 (136-145) mmol/L Potassium 3.2 L (3.5-5.1) mmol/L Chloride 103 (98-107) mmol/L Carbon Dioxide 20.2 L (21.0-32.0) mmol/L BUN 8 (7.0-18.0) mg/dL Creatinine 0.7 (0.6-1.0) mg/dL Est Cr Clr Drug Dosing TNP Estimated GFR (MDRD) > 60.0 ml/min Glucose 140 H (74-106) mg/dL Calcium 8.7 (8.5-10.1) mg/dL Total Bilirubin 0.5 (0.2-1.0) mg/dL AST 11 L (15-37) IU/L ALT 20 (14-63) IU/L Alkaline Phosphatase 52 (46-116) U/L Total Protein 7.1 (6.4-8.2) g/dL Albumin 3.8 (3.4-5.0) g/dL Globulin 3.3 (2.6-4.0) g/dL Albumin/Globulin Ratio 1.2 (0.9-1.6) Lipase 76 (73-393) U/L Ethyl Alcohol <3 mg/dL Meds: Medications Generic Name Dose Route Start Last Admin Trade Name Freq PRN Reason Stop Dose Admin Potassium Chloride/Dextrose/Sod Cl 1,000 mls @ 150 mls/hr 10/18/20 05:45 D5 1/2 Ns W/ 40 Meq/L Kcl IV ASDIRECTED JOANN Sodium Chloride 10 ml 10/18/20 03:27 10/18/20 03:46 Sodium Chloride 0.9% 10 Ml Syringe FLUSH 10 ml ASDIRECTED PRN Administration Keep Vein Open Sodium Chloride 2.5 ml 10/18/20 03:27 10/18/20 03:47 Sodium Chloride 0.9% 2.5 Ml Syringe FLUSH 2.5 ml ASDIRECTED PRN Administration Keep Vein Open Discontinued Medications Generic Name Dose Route Start Last Admin Trade Name Santhoshq PRN Reason Stop Dose Admin Diphenhydramine HCl 25 mg 10/18/20 05:41 Diphenhydramine 50 Mg/Ml Sdv IVPUSH 10/18/20 05:42 ONETIME ONE Sodium Chloride 1,000 mls @ 1,000 mls/hr 10/18/20 03:28 10/18/20 03:46 Normal Saline IV 10/18/20 04:27 1,000 mls/hr .Bolus ONE Administration Loperamide HCl 4 mg 10/18/20 04:24 10/18/20 04:35 Loperamide 2 Mg Cap PO 10/18/20 04:25 4 mg ONETIME ONE Administration Metoclopramide HCl 10 mg 10/18/20 03:31 10/18/20 03:46 Metoclopramide 10 Mg/2 Ml Sdv IVPUSH 10/18/20 03:32 10 mg ONETIME ONE Administration Ondansetron HCl 4 mg 10/18/20 03:53 10/18/20 03:58 Ondansetron 4 Mg/2 Ml Sdv IVPUSH 10/18/20 03:54 4 mg ONETIME ONE Administration Promethazine HCl 25 mg 10/18/20 04:31 10/18/20 04:35 Promethazine 25 Mg Tab PO 10/18/20 04:32 25 mg STAT STA Administration Departure - Departure Time of Disposition: 05:49 Disposition: Refer to Observation Condition: Good Clinical Impression: Hyperemesis gravidarum, Food poisoning - Discharge Information Prescriptions: Doxylamine Succinate/Vit B6 [Doxylamine-Pyridoxine 10-10 mg] 2 each PO QPM #30 tablet. Instructions: Hyperemesis Gravidarum Referrals: PCP,None [Primary Care Provider] - Forms: ED Department Discharge Additional Instructions: Imodium has not been shown to cause problems with but has not been well studied. It should only be used if you cannot tolerate the symptoms and cannot keep up with your hydration using Pedialyte or electrolyte solutions. Nausea medicine prescription was sent to your pharmacy. [address] [address] [facility] [address] [address] The following information is given to patients seen in the emergency department who are being discharged to home. This information is to outline your options for follow-up care. We provide all patients seen in our emergency department with a follow-up referral. The need for follow-up, as well as the timing and circumstances, are variable depending upon the specifics of your emergency department visit. If you don't have a primary care physician on staff, we will provide you with a referral. We always advise you to contact your personal physician following an emergency department visit to inform them of the circumstance of the visit and for follow-up with them and/or the need for any referrals to a consulting specialist. The emergency department will also refer you to a specialist when appropriate. This referral assures that you have the opportunity for follow-up care with a specialist. All of these measure are taken in an effort to provide you with optimal care, which includes your follow-up. Under all circumstances we always encourage you to contact your private physician who remains a resource for coordinating your care. When calling for follow-up care, please make the office aware that this follow-up is from your recent emergency room visit. If for any reason you are refused follow-up, please contact the [facility] Emergency Department at and asked to speak to the emergency department charge nurse. Sepsis Event Note (ED) - Focused Exam Vital Signs: Vital Signs Temp Pulse Resp BP Pulse Ox 10/18/20 04:38 87 20 128/76 98 10/18/20 03:26 35.6 C L 90 20 100 - My Orders Last 24 Hours: My Active Orders 10/18/20 03:27 DRUG SCREEN, URINE [URCHEM] Stat Sodium Chloride 0.9% [Saline Flush] 10 ml FLUSH ASDIRECTED PRN Sodium Chloride 0.9% [Saline Flush] 2.5 ml FLUSH ASDIRECTED PRN Saline Lock Insert [OM.PC] Stat 10/18/20 03:28 UA W/PROSPER RFLX IF INDICATED [URIN] Stat 10/18/20 03:29 Heart Tones [RC] ASDIRECTED 10/18/20 05:45 D5 1/2 NS w/ 40 mEq/L KCl 1,000 ml IV ASDIRECTED 10/18/20 05:47 Admission Status [Patient Status] [ADT] Stat 10/18/20 05:48 CORONAVIRUS COVID-19 NITZA [MOLEC] Stat - Assessment/Plan Last 24 Hours: My Active Orders 10/18/20 03:27 DRUG SCREEN, URINE [URCHEM] Stat Sodium Chloride 0.9% [Saline Flush] 10 ml FLUSH ASDIRECTED PRN Sodium Chloride 0.9% [Saline Flush] 2.5 ml FLUSH ASDIRECTED PRN Saline Lock Insert [OM.PC] Stat 10/18/20 03:28 UA W/PROSPER RFLX IF INDICATED [URIN] Stat 10/18/20 03:29 Heart Tones [RC] ASDIRECTED 10/18/20 05:45 D5 1/2 NS w/ 40 mEq/L KCl 1,000 ml IV ASDIRECTED 10/18/20 05:47 Admission Status [Patient Status] [ADT] Stat 10/18/20 05:48 CORONAVIRUS COVID-19 NITZA [MOLEC] Stat
[2020-10-18] MEDS ORDERED: Ondansetron 4 MG/2 ML SDV IVPUSH ONE (03:53)
[2020-10-18] MEDS ORDERED: Loperamide 2 MG Cap PO ONE (04:24)
[2020-10-18 04:30] LABS: BLOOD UREA NITROGEN,BUN 8 mg/dL (7.0-18.0); CARBON DIOXIDE,CO2 20.2 mmol/L (21.0-32.0); CHLORIDE,CL 103 mmol/L (98-107); GLUCOSE RANDOM 140 mg/dL (74-106); LIPASE 76 U/L (73-393); POTASSIUM,K 3.2 mmol/L (3.5-5.1); SODIUM,NA 139 mmol/L (136-145)
[2020-10-18] MEDS ORDERED: Promethazine 25 MG Tab PO STA (04:31)
[2020-10-18] MEDS ORDERED: diphenhydrAMINE 50 MG/ML SDV IVPUSH ONE (05:41)
[2020-10-18] MEDS ORDERED: D5 1/2 NS w/ 40 mEq/L KCl 1,000 ML IV SCH (05:45)
[2020-10-18] MEDS ORDERED: Lactated Ringers 500 ML IV ONE (10:00)
[2020-10-18] MEDS ORDERED: Lactated Ringers 1,000 ML IV SCH ×2 (10:00→21:00)
[2020-10-18] MEDS ORDERED: Promethazine 25 MG/ML SDV IM ONE (10:00)
[2020-10-18] MEDS: Ondansetron 4 MG/2 ML SDV IVPUSH PRN ×2 (11:19→19:29)
--- NOTE | 2020-10-18 16:15 | PCM.CONS ---
H&P History of Present Illness - General Date of Service: 10/18/20 Admit Problem/Dx: Admission Diagnosis/Problem Admission Diagnosis/Problem Food poisoning [employer] consult from ED was conducted today at ~ 1000 am regarding care of the following patient: Cathy is a 35 yo 0-2-5 at 15+1 weeks gestation ([place] 04/10/2019) that presents to ED this morning with C/O severe N/V/D x 1 day. Denied movement, appropriate for gestation. Denied LOF, uterine pain, kareem vaginal bleeding. Historic ABO-Rh: O pos. IOB labs to include CMP, A1c, PT/PTT, INR to be completed upcoming visit planned 10/25/2020. Pertinent medical history includes: Grand-multiparity ( x5), easy bruising, anemia, BPD, PTSD, eczema, H/O prior marijuana use, H/O GDM x 2, asthma, current light smoker, H/O temporal aneurysm sx. Ax: Shellfish/Iodine. Medications: PNV+iron daily. Patient was seen in clinic 09/27/2020 for IOB visit. VSS, afebrile at that time. Current course unremarkable. Labs collected in ED indicate N/V/D with resulting dehydration likely d/t acute viral gastroenteritis. Patient reports family members were sick with "GI bug" last week including smallest child who goes to an in-home day care with 5 other children, had diarrhea last week. Upon CNM presentation to [facility], VSS, afebrile. AOx4. 500 ml LR bolus with commencement fo 125 ml/hr thereafter ordered. 25 mg IM Phenergan once + 8 mg IV Zofran ordered due to intractable nausea with vomiting. Warning S/Ss of possible tissue damage noted, off label use of IM phenergan once opted by patient d/t IV zofran ineffectiveness alone. FHTs 155. Patient reports combination therapy effective in managing symptoms. PLAN: Continue 125 ml/hr LR maintenance. 25 mg Phenergan PO (or per rectum if unable to tolerate PO) q 6 hrs and 4-8 mg Zofran IV q 6 hrs as needed for nausea. 25 mg hydroxyzine PO q 6 hrs as needed for anxiety. CBC + CMP in am. Plan to reassess for discharge home in am. See new orders. Dr. Callahan notified and agreeable with POC. Source of Information: Patient History Limitations: Reports: No Limitations - History of Present Illness Onset of Symptoms: Reports: Sudden Symptom Onset Date: 10/17/20 Duration of Symptoms: Reports: Resolved Prior to Arrival, Waxing/Waning Location: Reports: Abdomen Quality: Reports: Ache, Sharp, Stabbing Severity: Severe Improves with: Reports: Other (Antiemetics, hydration) Worsens with: Reports: Eating Context: Reports: Sick Contact Associated Symptoms: Reports: Nausea/Vomiting - Related Data Allergies/Adverse Reactions: Allergies Allergy/AdvReac Type Severity Reaction Status Date / Time shellfish derived Allergy Hives Verified 10/18/20 09:39 Home Medications: Home Meds #103/Iron Fumarate/Fa [ ] 1 tab PO DAILY 09/04/20 [History] Doxylamine Succinate/Vit B6 [Doxylamine-Pyridoxine 10-10 mg] 2 each PO QPM #30 tablet. 10/18/20 [Rx] Past Medical History HEENT History: Reports: Other (See Below) Other HEENT History: collapsed sinuses Cardiovascular History: Reports: Aneurysm Respiratory History: Reports: Asthma Gastrointestinal History: Reports: None Genitourinary History: Reports: None [employer] History: Reports: , Spontaneous : 8 Para: 5 LMP (Approximate): Musculoskeletal History: Reports: None Other Musculoskeletal History: Skull fracture Neurological History: Reports: Cerebral Aneurysms, Other (See Below) Psychiatric History: Reports: None Endocrine/Metabolic History: Reports: Diabetes, Gestational Hematologic History: Reports: None Immunologic History: Reports: None Oncologic (Cancer) History: Reports: None Dermatologic History: Reports: None - Infectious Disease History Infectious Disease History: Reports: Chicken Pox - Past Surgical History Head Surgeries/Procedures: Reports: None HEENT Surgical History: Reports: None Respiratory Surgical History: Reports: None GI Surgical History: Reports: None Female Surgical History: Reports: None Endocrine Surgical History: Reports: None Neurological Surgical History: Reports: Other (See Below) Other Neurological Surgeries/Procedures: Head Surgery Musculoskeletal Surgical History: Reports: None Oncologic Surgical History: Reports: None Dermatological Surgical History: Reports: None Social & Family History - Family History Family Medical History: No Pertinent Family History HEENT: Reports: None GI: Reports: Other (See Below) Other GI Family History: Mother had liver tumor Oncologic: Reports: Liver - Tobacco Use Tobacco Use Status *Q: Current Every Day Tobacco User Years of Tobacco use: 24 Packs/Tins Daily: 0.2 Used Tobacco, but Quit: No Second Hand Smoke Exposure: Yes - Caffeine Use Caffeine Use: Reports: None - Alcohol Use Alcohol Use History: No - Recreational Drug Use Recreational Drug Use: Yes Drug Use in Last 12 Months: Yes Recreational Drug Type: Reports: Marijuana/Hashish Recreational Drug Use Frequency: Daily H&P Review of Systems - Review of Systems: Review Of Systems: Comprehensive ROS is negative, except as noted in HPI. General: Reports: No Symptoms HEENT: Reports: No Symptoms Pulmonary: Reports: No Symptoms Cardiovascular: Reports: No Symptoms Gastrointestinal: Reports: No Symptoms Genitourinary: Reports: No Symptoms Musculoskeletal: Reports: No Symptoms Skin: Reports: No Symptoms Psychiatric: Reports: No Symptoms Neurological: Reports: No Symptoms Hematologic/Lymphatic: Reports: No Symptoms Immunologic: Reports: No Symptoms Exam - Exam Exam: See Below - Vital Signs Vital Signs: Last Vital Signs Temp 96.8 F L 10/18/20 09:22 Pulse 63 10/18/20 09:22 Resp 18 10/18/20 09:22 BP 122/66 10/18/20 09:22 Pulse Ox 99 10/18/20 09:22 Weight: 175 lb 14.4 oz - Exam General: Alert, Oriented, Cooperative HEENT: Conjunctiva Clear, Hearing Intact, Mucosa Moist & Agenda, Pupils Reactive, PERRLA Neck: Supple, Trachea Midline, 2 Lungs: Clear to Auscultation, Normal Respiratory Effort Cardiovascular: Regular Rate, Regular Rhythm GI/Abdominal Exam: Normal Bowel Sounds, Soft, Non-Tender, No Organomegaly, No Distention (Female) Exam: Normal External Exam, Normal Speculum Exam, Enlarged Uterus (15-16 weeks gestation), Heart Tones (155, RRR.) Rectal (Female) Exam: Deferred Back Exam: Normal Inspection, Full Range of Motion, NT Extremities: Normal Inspection, Normal Range of Motion, Non-Tender, No Pedal Edema, Normal Capillary Refill Skin: Warm, Dry, Intact Neurological: Cranial Nerves Intact, Reflexes Equal Bilateral Neuro Extensive - Mental Status: Alert, Oriented x3, Normal Mood/Affect Neuro Extensive - Motor, Sensory, Reflexes: CN II-XII Intact, Normal Gait Psychiatric: Alert, Normal Affect, Normal Mood, Anxious - Patient Data Lab Results Last 24 hrs: Laboratory Results - last 24 hr 10/18/20 10/18/20 10/18/20 Range/Units 04:00 04:00 05:54 WBC 16.43 H (4.0-11.0) K/uL RBC 4.54 (4.30-5.90) M/uL Hgb 14.3 (12.0-16.0) g/dL Hct 41.4 (36.0-46.0) % MCV 91.2 (80.0-98.0) fL MCH 31.5 (27.0-32.0) pg MCHC 34.5 (31.0-37.0) g/dL RDW Std Deviation 49.0 (28.0-62.0) fl RDW Coeff of Fareed 15 (11.0-15.0) % Plt Count 176 (150-400) K/uL MPV 11.80 (7.40-12.00) fL Neut % (Auto) 84.2 H (48.0-80.0) % Lymph % (Auto) 10.7 L (16.0-40.0) % [place] % (Auto) 4.7 (0.0-15.0) % Eos % (Auto) 0.2 (0.0-7.0) % Baso % (Auto) 0.2 (0.0-1.5) % Neut # (Auto) 13.8 H (1.4-5.7) K/uL Lymph # (Auto) 1.8 (0.6-2.4) K/uL [place] # (Auto) 0.8 (0.0-0.8) K/uL Eos # (Auto) 0.0 (0.0-0.7) K/uL Baso # (Auto) 0.0 (0.0-0.1) K/uL Nucleated RBC % 0.0 /100WBC Nucleated RBCs # 0 K/uL Sodium 139 (136-145) mmol/L Potassium 3.2 L (3.5-5.1) mmol/L Chloride 103 (98-107) mmol/L Carbon Dioxide 20.2 L (21.0-32.0) mmol/L BUN 8 (7.0-18.0) mg/dL Creatinine 0.7 (0.6-1.0) mg/dL Est Cr Clr Drug Dosing TNP Estimated GFR (MDRD) > 60.0 ml/min Glucose 140 H (74-106) mg/dL Calcium 8.7 (8.5-10.1) mg/dL Total Bilirubin 0.5 (0.2-1.0) mg/dL AST 11 L (15-37) IU/L ALT 20 (14-63) IU/L Alkaline Phosphatase 52 (46-116) U/L Total Protein 7.1 (6.4-8.2) g/dL Albumin 3.8 (3.4-5.0) g/dL Globulin 3.3 (2.6-4.0) g/dL Albumin/Globulin Ratio 1.2 (0.9-1.6) Lipase 76 (73-393) U/L Urine Color Urine Appearance Urine pH (5.0-8.0) Ur Specific [place] (1.001-1.035) Urine Protein (NEGATIVE) mg/dL Urine Glucose (UA) (NEGATIVE) mg/dL Urine Ketones (NEGATIVE) mg/dL Urine Occult Blood (NEGATIVE) Urine Nitrite (NEGATIVE) Urine Bilirubin (NEGATIVE) Urine Urobilinogen (<2.0) EU/dL Ur Leukocyte Esterase (NEGATIVE) Urine Opiates Screen (NEGATIVE) Ur Oxycodone Screen (NEGATIVE) Urine Methadone Screen (NEGATIVE) Ur Barbiturates Screen (NEGATIVE) Ur Phencyclidine Scrn (NEGATIVE) Ur Amphetamine Screen (NEGATIVE) U Methamphetamines Scrn (NEGATIVE) U Benzodiazepines Scrn (NEGATIVE) U Cocaine Metab Screen (NEGATIVE) U Marijuana (THC) Screen (NEGATIVE) Ethyl Alcohol <3 mg/dL SARS-CoV-2 RNA (NITZA) NEGATIVE (NEGATIVE) 10/18/20 10/18/20 Range/Units 06:30 06:30 WBC (4.0-11.0) K/uL RBC (4.30-5.90) M/uL Hgb (12.0-16.0) g/dL Hct (36.0-46.0) % MCV (80.0-98.0) fL MCH (27.0-32.0) pg MCHC (31.0-37.0) g/dL RDW Std Deviation (28.0-62.0) fl RDW Coeff of Fareed (11.0-15.0) % Plt Count (150-400) K/uL MPV (7.40-12.00) fL Neut % (Auto) (48.0-80.0) % Lymph % (Auto) (16.0-40.0) % [place] % (Auto) (0.0-15.0) % Eos % (Auto) (0.0-7.0) % Baso % (Auto) (0.0-1.5) % Neut # (Auto) (1.4-5.7) K/uL Lymph # (Auto) (0.6-2.4) K/uL [place] # (Auto) (0.0-0.8) K/uL Eos # (Auto) (0.0-0.7) K/uL Baso # (Auto) (0.0-0.1) K/uL Nucleated RBC % /100WBC Nucleated RBCs # K/uL Sodium (136-145) mmol/L Potassium (3.5-5.1) mmol/L Chloride (98-107) mmol/L Carbon Dioxide (21.0-32.0) mmol/L BUN (7.0-18.0) mg/dL Creatinine (0.6-1.0) mg/dL Est Cr Clr Drug Dosing Estimated GFR (MDRD) ml/min Glucose (74-106) mg/dL Calcium (8.5-10.1) mg/dL Total Bilirubin (0.2-1.0) mg/dL AST (15-37) IU/L ALT (14-63) IU/L Alkaline Phosphatase (46-116) U/L Total Protein (6.4-8.2) g/dL Albumin (3.4-5.0) g/dL Globulin (2.6-4.0) g/dL Albumin/Globulin Ratio (0.9-1.6) Lipase (73-393) U/L Urine Color YELLOW Urine Appearance CLEAR Urine pH 6.0 (5.0-8.0) Ur Specific [place] >= 1.030 (1.001-1.035) Urine Protein NEGATIVE (NEGATIVE) mg/dL Urine Glucose (UA) NEGATIVE (NEGATIVE) mg/dL Urine Ketones >=80 (NEGATIVE) mg/dL Urine Occult Blood NEGATIVE (NEGATIVE) Urine Nitrite NEGATIVE (NEGATIVE) Urine Bilirubin NEGATIVE (NEGATIVE) Urine Urobilinogen 0.2 (<2.0) EU/dL Ur Leukocyte Esterase NEGATIVE (NEGATIVE) Urine Opiates Screen NEGATIVE (NEGATIVE) Ur Oxycodone Screen NEGATIVE (NEGATIVE) Urine Methadone Screen NEGATIVE (NEGATIVE) Ur Barbiturates Screen NEGATIVE (NEGATIVE) Ur Phencyclidine Scrn NEGATIVE (NEGATIVE) Ur Amphetamine Screen NEGATIVE (NEGATIVE) U Methamphetamines Scrn NEGATIVE (NEGATIVE) U Benzodiazepines Scrn NEGATIVE (NEGATIVE) U Cocaine Metab Screen NEGATIVE (NEGATIVE) U Marijuana (THC) Screen NEGATIVE (NEGATIVE) Ethyl Alcohol mg/dL SARS-CoV-2 RNA (NITZA) (NEGATIVE) Result Diagrams: 10/18/20 04:00 10/18/20 04:00 Sepsis Event Note - Evaluation Sepsis Screening Result: No Definite Risk - Focused Exam Vital Signs: Vital Signs Temp Pulse Resp BP Pulse Ox 10/18/20 09:22 96.8 F L 63 18 122/66 99 10/18/20 08:43 98.0 F 82 18 119/82 98 10/18/20 06:37 87 18 127/85 96 10/18/20 04:38 87 20 128/76 98 Consult PN Assessment/Plan Procedures: Procedures ASSAY OF LIPASE (05/09/20) BLOOD TYPING SEROLOGIC ABO (09/04/20) BLOOD TYPING SEROLOGIC RH(D) (09/04/20) SIMA DNA DIR PROBE (09/04/20) CHORIONIC GONADOTROPIN ASSAY (05/09/20) CHORIONIC GONADOTROPIN TEST (09/14/20) CHYLMD TRACH DNA AMP PROBE (09/04/20) COMPLETE CBC AUTOMATED (10/14/19) COMPLETE CBC W/AUTO DIFF WBC (09/14/20) COMPREHEN METABOLIC PANEL (05/09/20) CT HEAD/BRAIN W/O DYE (07/25/17) CT NECK SPINE W/O DYE (07/25/17) CULTURE SCREEN ONLY (12/16/19) CYTOPATH C/V AUTO FLUID REDO (02/14/19) DRUG TEST PRSMV DIR OPT OBS (05/09/20) ECHO EXAM OF ABDOMEN (09/04/20) EMERGENCY DEPT VISIT (09/14/20) EMERGENCY DEPT VISIT (04/04/18) EMERGENCY DEPT VISIT (01/04/18) EMERGENCY DEPT VISIT (12/30/17) EMERGENCY DEPT VISIT (07/25/17) NON-STRESS TEST (12/26/19) DUNN VAG DNA DIR PROBE (09/04/20) GLUCOSE TEST (11/19/18) HEPATITIS B SURFACE AG IA (09/09/19) HEPATITIS C AB TEST (09/09/19) HIV-1 AG W/HIV-1 & -2 AB AG IA (09/09/19) HPV HIGH-RISK TYPES (02/14/19) N.GONORRHOEAE DNA AMP PROB (09/04/20) OB US >/= 14 WKS SNGL FETUS (09/13/19) OB US FOLLOW-UP PER FETUS (11/04/19) RBC ANTIBODY SCREEN (09/04/20) ROUTINE VENIPUNCTURE (09/14/20) RUBELLA ANTIBODY (09/09/19) SYPHILIS TEST NON-TREP QUAL (09/09/19) THER/PROPH/DIAG INJ IV PUSH (09/04/20) THER/PROPH/DIAG INJ SC/IM (04/04/18) TRANSVAGINAL US OBSTETRIC (09/14/20) TRICHOMONAS VAGIN DIR PROBE (09/04/20) URINALYSIS AUTO W/O SCOPE (09/27/20) URINALYSIS AUTO W/SCOPE (05/09/20) URINE CULTURE/COLONY COUNT (09/27/20) URINE TEST (07/25/17) (1) Nausea & vomiting SNOMED Code(s): 51642816 Code(s): R11.2 - NAUSEA WITH VOMITING, UNSPECIFIED Current Visit: Yes Qualifiers: Vomiting Intractability: intractable (2) Diarrhea SNOMED Code(s): 56580525 Code(s): R19.7 - DIARRHEA, UNSPECIFIED Current Visit: Yes Qualifiers: Diarrhea type: presumed infectious Qualified Code(s): R19.7 - Diarrhea, unspecified (3) Multigravida in second trimester SNOMED Code(s): 678190910, 082031843 Code(s): Z34.82 - ENCOUNTER FOR SUPRVSN OF NORMAL , SECOND TRIMESTER Priority: High Current Visit: Yes Problem List Initiated/Reviewed/Updated: Yes My Orders Last 24 Hours: My Active Orders 10/18/20 10:00 Lactated Ringers [Ringers, Lactated] 1,000 ml IV ASDIRECTED 10/18/20 10:08 Ondansetron [Zofran] 8 mg IVPUSH Q8H PRN 10/18/20 Lunch BRAT Diet [DIET] Plan: Upon CNM presentation to [facility], [facility]ET[facility], afebrile. AOx4. 500 ml LR bolus with commencement fo 125 ml/hr thereafter ordered. 25 mg IM Phenergan once + 8 mg IV Zofran ordered due to intractable nausea with vomiting. Warning S/Ss of possible tissue damage noted, off label use of IM phenergan once opted by patient d/t IV zofran ineffectiveness alone. FHTs 155, RRR. Patient reports combination therapy effective in managing symptoms, but reports slow re- progression of symptoms. PLAN: Continue 125 ml/hr LR maintenance. 25 mg Phenergan PO (or per rectum if unable to tolerate PO) q 6 hrs and 4-8 mg Zofran IV q 6 hrs as needed for nausea. 25 mg hydroxyzine PO q 6 hrs as needed for anxiety. CBC + CMP in am. Plan to reassess for discharge home in am. See new orders. Dr. Callahan notified and agreeable with POC.
[2020-10-18] MEDS ORDERED: hydrOXYzine HCl 25 MG Tab PO PRN (17:20)
[2020-10-18] MEDS ORDERED: Promethazine 25 MG Tab ONE (17:41)
[2020-10-18] MEDS: Promethazine 25 MG Tab PO PRN ×2 (17:43→23:35)
[2020-10-19] MEDS: Ondansetron 4 MG/2 ML SDV IVPUSH PRN (03:48)
--- NOTE | 2020-10-19 05:17 | PCM.DCSUM1 ---
Discharge Summary - Hospital Course Free Text/Narrative:: Cathy is a 35 yo 0-2-5 at 15+2 weeks gestation ([place] 04/10/2019) that presented to the ED 1 day ago with C/O severe N/V/D x 1 day. Denied movement, appropriate for gestation. Denied LOF, uterine pain, kareem vaginal bleeding. Historic ABO-Rh: O pos. IOB labs to include CMP, A1c, PT/PTT, INR to be completed upcoming visit planned 10/25/2020. Pertinent medical history includes: Grand-multiparity ( x5), easy bruising, anemia, BPD, PTSD, eczema, H/O prior marijuana use, H/O GDM x 2, asthma, current light smoker, H/O temporal aneurysm sx. Ax: Shellfish/Iodine. Medications: PNV+iron daily. Current course unremarkable. Labs collected in ED indicate N/V/D with resulting dehydration likely d/t acute viral gastroenteritis likely from child. Patient continues to be VSS, afebrile. AOx4. LR 125 ml/hr administered yesterday and through the night. Patient was able to eat a meal of soup and strawberries last night. While patient continues to be nauseated intermittently, vomiting and sharp abdominal cramping has subsided. FHTs collected by L&D RN today, 140s, RRR. PLAN: CBC + CMP pending collection this am. Plan to discharge home. PO phenergan and zofran prescriptions sent to pharmacy. F/U in [facility] office as regularly scheduled 10/25/2020, or sooner if problems arise. Dr. Callahan notified and agreeable with POC. Diagnosis: Stroke: No - Discharge Data Discharge Date: 10/19/20 Discharge Disposition: Home, Self-Care 01 Condition: Good - Referral to Home Health Primary Care Physician: PCP None - Discharge Diagnosis/Problem(s) (1) Nausea & vomiting SNOMED Code(s): 04362899 ICD Code: R11.2 - NAUSEA WITH VOMITING, UNSPECIFIED Status: Acute Current Visit: Yes Qualifiers: Vomiting Intractability: intractable (2) Diarrhea SNOMED Code(s): 34217727 ICD Code: R19.7 - DIARRHEA, UNSPECIFIED Status: Acute Current Visit: Yes Qualifiers: Diarrhea type: presumed infectious Qualified Code(s): R19.7 - Diarrhea, unspecified (3) Multigravida in second trimester SNOMED Code(s): 798969093, 396081822 ICD Code: Z34.82 - ENCOUNTER FOR SUPRVSN OF NORMAL , SECOND TRIMESTER Status: Acute Priority: High Current Visit: Yes - Patient Instructions Diet: Usual Diet as Tolerated, Drink 8-10+ Glasses/Day, No Alcoholic Beverages Activity: As Tolerated, No Strenuous Activities, Rest and Relax Today Driving: May Drive Today Showering/Bathing: May Shower Notify Provider of: Fever, Increased Pain, Swelling and Redness, Drainage, Nausea and/or Vomiting - Discharge Plan *PRESCRIPTION DRUG MONITORING PROGRAM REVIEWED*: No *COPY OF PRESCRIPTION DRUG MONITORING REPORT IN PATIENT JOHNNIE: No Prescriptions/Med Rec: Promethazine [Phenergan] 25 mg PO Q6H PRN #30 tablet PRN Reason: Nausea/Vomiting Ondansetron [Zofran ODT] 4 mg PO Q6H #15 tab.dis Home Medications: Home Meds Pnv No.95/Ferrous Fum/Folic AC [ Multivitamin Tablet] 1 tab PO DAILY 10/18/20 [History] Ondansetron [Zofran ODT] 4 mg PO Q6H #15 tab.dis 10/19/20 [Rx] Promethazine [Phenergan] 25 mg PO Q6H PRN #30 tablet 10/19/20 [Rx] Oxygen Therapy Mode: Room Air Patient Handouts: Hyperemesis Gravidarum, Doxycycline oral tablets (Periodontitis) Referrals: PCP,None [Primary Care Provider] - - Discharge Summary/Plan Comment DC Time >30 min.: Yes Discharge Summary/Plan Comment: PLAN: CBC + CMP pending collection this am. Plan to discharge home. PO ph energan and zofran prescriptions sent to pharmacy. F/U in [facility] office as regularly scheduled 10/25/2020, or sooner if problems arise. Dr. Callahan notified and agreeable with POC. - General Info Date of Service: 10/19/20 Admission Dx/Problem (Free Text: Admission Diagnosis/Problem Admission Diagnosis/Problem Food poisoning [facility] consult from ED was conducted today at ~ 1000 am regarding care of the following patient: Cathy is a 35 yo 0-2-5 at 15+1 weeks gestation ([place]) 04/10/2019) that presents to ED this morning with C/O severe N/V/D x 1 day. Denied movement, appropriate for gestation. Denied LOF, uterine pain, kareem vaginal bleeding. Historic ABO-Rh: O pos. IOB labs to include CMP, A1c, PT/PTT, INR to be completed upcoming visit planned 10/25/2020. Pertinent medical history includes: Grand-multiparity ( x5), easy bruising, anemia, BPD, PTSD, eczema, H/O prior marijuana use, H/O GDM x 2, asthma, current light smoker, H/O temporal aneurysm sx. Ax: Shellfish/Iodine. Medications: PNV+iron daily. Patient was seen in clinic 09/27/2020 for IOB visit. VSS, afebrile at that time. Current course unremarkable. Labs collected in ED indicate N/V/D with resulting dehydration likely d/t acute viral gastroenteritis. Patient reports family members were sick with "GI bug" last week including smallest child who goes to an in-home day care with 5 other children, had diarrhea last week. Upon [facility]M presentation to [facility], VSS, afebrile. AOx4. 500 ml LR bolus with commencement fo 125 ml/hr thereafter ordered. 25 mg IM Phenergan once + 8 mg IV Zofran ordered due to intractable nausea with vomiting. Warning S/Ss of possible tissue damage noted, off label use of IM phenergan once opted by patient d/t IV zofran ineffectiveness alone. FHTs 155. Patient reports combination therapy effective in managing symptoms. PLAN: Continue 125 ml/hr LR maintenance. 25 mg Phenergan PO (or per rectum if unable to tolerate PO) q 6 hrs and 4-8 mg Zofran IV q 6 hrs as needed for nausea. 25 mg hydroxyzine PO q 6 hrs as needed for anxiety. CBC + CMP in am. Plan to reassess for discharge home in am. See new orders. Dr. Callahan notified and agreeable with POC. Functional Status: Reports: Pain Controlled, Tolerating Diet, Ambulating, Urinating - Review of Systems General: Reports: No Symptoms HEENT: Reports: No Symptoms Pulmonary: Reports: No Symptoms Cardiovascular: Reports: No Symptoms Gastrointestinal: Reports: No Symptoms Genitourinary: Reports: No Symptoms Musculoskeletal: Reports: No Symptoms Skin: Reports: No Symptoms Neurological: Reports: No Symptoms Psychiatric: Reports: No Symptoms - Patient Data Vitals - Most Recent: Last Vital Signs Temp 98.1 F 10/19/20 03:55 Pulse 70 10/19/20 03:55 Resp 18 10/19/20 03:55 BP 113/56 L 10/19/20 03:55 Pulse Ox 99 10/19/20 03:55 Weight - Most Recent: 175 lb 14.4 oz I&O - Last 24 hours: Intake & Output 10/18/20 10/18/20 10/19/20 14:59 22:59 06:59 Intake Total 1173 1463 Output Total 500 400 Balance 673 1063 Lab Results - Last 24 hrs: Laboratory Results - last 24 hr 10/18/20 10/18/20 10/18/20 Range/Units 05:54 06:30 06:30 Urine Color YELLOW Urine Appearance CLEAR Urine pH 6.0 (5.0-8.0) Ur Specific [place] >= 1.030 (1.001-1.035) Urine Protein NEGATIVE (NEGATIVE) mg/dL Urine Glucose (UA) NEGATIVE (NEGATIVE) mg/dL Urine Ketones >=80 (NEGATIVE) mg/dL Urine Occult Blood NEGATIVE (NEGATIVE) Urine Nitrite NEGATIVE (NEGATIVE) Urine Bilirubin NEGATIVE (NEGATIVE) Urine Urobilinogen 0.2 (<2.0) EU/dL Ur Leukocyte Esterase NEGATIVE (NEGATIVE) Urine Opiates Screen NEGATIVE (NEGATIVE) Ur Oxycodone Screen NEGATIVE (NEGATIVE) Urine Methadone Screen NEGATIVE (NEGATIVE) Ur Barbiturates Screen NEGATIVE (NEGATIVE) Ur Phencyclidine Scrn NEGATIVE (NEGATIVE) Ur Amphetamine Screen NEGATIVE (NEGATIVE) U Methamphetamines Scrn NEGATIVE (NEGATIVE) U Benzodiazepines Scrn NEGATIVE (NEGATIVE) U Cocaine Metab Screen NEGATIVE (NEGATIVE) U Marijuana (THC) Screen NEGATIVE (NEGATIVE) SARS-CoV-2 RNA (NITZA) NEGATIVE (NEGATIVE) Med Orders - Current: Current Medications Hydroxyzine HCl (Hydroxyzine Hcl 25 Mg Tab) 25 mg PO Q6H PRN PRN Reason: Anxiety Last Admin: 10/19/20 03:54 Dose: 25 mg Documented by: Lactated Ringer's (Ringers, Lactated) 1,000 mls @ 125 mls/hr IV ASDIRECTED JOANN Last Admin: 10/18/20 23:34 Dose: 125 mls/hr Documented by: Ondansetron HCl (Ondansetron 4 Mg/2 Ml Sdv) 8 mg IVPUSH Q8H PRN PRN Reason: Nausea/Vomiting Last Admin: 10/19/20 03:48 Dose: 8 mg Documented by: Promethazine HCl (Promethazine 25 Mg Tab) 25 mg PO Q6H PRN PRN Reason: Nausea/Vomiting Last Admin: 10/18/20 23:35 Dose: 25 mg Documented by: Sodium Chloride (Sodium Chloride 0.9% 10 Ml Syringe) 10 ml FLUSH ASDIRECTED PRN PRN Reason: Keep Vein Open Last Admin: 10/18/20 03:46 Dose: 10 ml Documented by: Sodium Chloride (Sodium Chloride 0.9% 2.5 Ml Syringe) 2.5 ml FLUSH ASDIRECTED PRN PRN Reason: Keep Vein Open Last Admin: 10/18/20 03:47 Dose: 2.5 ml Documented by: Discontinued Medications Diphenhydramine HCl (Diphenhydramine 50 Mg/Ml Sdv) 25 mg IVPUSH ONETIME ONE Stop: 10/18/20 05:42 Last Admin: 10/18/20 05:57 Dose: 25 mg Documented by: Sodium Chloride (Normal Saline) 1,000 mls @ 1,000 mls/hr IV .Bolus ONE Stop: 10/18/20 04:27 Last Admin: 10/18/20 03:46 Dose: 1,000 mls/hr Documented by: Potassium Chloride/Dextrose/Sod Cl (D5 1/2 Ns W/ 40 Meq/L Kcl) 1,000 mls @ 150 mls/hr IV ASDIRECTED [facility] Last Infusion: 10/18/20 11:14 Dose: 125 mls/hr Documented by: Lactated Ringer's (Ringers, Lactated) 500 mls @ 999 mls/hr IV .BOLUS ONE Stop: 10/18/20 10:30 Last Admin: 10/18/20 10:26 Dose: 999 mls/hr Documented by: Lactated Ringer's (Ringers, Lactated) 1,000 mls @ 125 mls/hr IV ASDIRECTED JOANN Stop: 10/19/20 10:00 Last Infusion: 10/18/20 19:38 Dose: 125 mls/hr Documented by: Loperamide HCl (Loperamide 2 Mg Cap) 4 mg PO ONETIME ONE Stop: 10/18/20 04:25 Last Admin: 10/18/20 04:35 Dose: 4 mg Documented by: Metoclopramide HCl (Metoclopramide 10 Mg/2 Ml Sdv) 10 mg IVPUSH ONETIME ONE Stop: 10/18/20 03:32 Last Admin: 10/18/20 03:46 Dose: 10 mg Documented by: Ondansetron HCl (Ondansetron 4 Mg/2 Ml Sdv) 4 mg IVPUSH ONETIME ONE Stop: 10/18/20 03:54 Last Admin: 10/18/20 03:58 Dose: 4 mg Documented by: Promethazine HCl (Promethazine 25 Mg Tab) 25 mg PO STAT STA Stop: 10/18/20 04:32 Last Admin: 10/18/20 04:35 Dose: 25 mg Documented by: Promethazine HCl (Promethazine 25 Mg/Ml Sdv) 25 mg IM ONETIME ONE Stop: 10/18/20 10:01 Last Admin: 10/18/20 10:23 Dose: 25 mg Documented by: Promethazine HCl (Promethazine 25 Mg Tab) Confirm Administered Dose 25 mg .ROUTE .STK-MED ONE Stop: 10/18/20 17:42 Last Admin: 10/18/20 18:24 Dose: Not Given Documented by: - Exam General: Reports: Alert, Oriented, Cooperative, No Acute Distress HEENT: Reports: Pupils Equal, Mucous Membr. Moist/[place] Neck: Reports: Supple Lungs: Reports: Clear to Auscultation, Normal Respiratory Effort Cardiovascular: Reports: Regular Rate, Regular Rhythm GI/Abdominal Exam: Normal Bowel Sounds, Soft, Non-Tender, No Organomegaly, No Distention (Female) Exam: Normal External Exam, Normal Speculum Exam, Normal Bimanual Exam, Enlarged Uterus (Gravid uterus), Heart Tones (140s, RRR) Rectal (Female) Exam: Deferred Back Exam: Reports: Normal Inspection, Full Range of Motion Extremities: Normal Inspection, Normal Range of Motion, Non-Tender, No Pedal Edema, Normal Capillary Refill Skin: Reports: Warm, Dry, Intact Neurological: Reports: No New Focal Deficit Psy/Mental Status: Reports: Alert, Normal Affect, Normal Mood
[2020-10-19 06:06] LABS: BLOOD UREA NITROGEN,BUN 4 mg/dL (7.0-18.0); CARBON DIOXIDE,CO2 22.2 mmol/L (21.0-32.0); CHLORIDE,CL 105 mmol/L (98-107); GLUCOSE RANDOM 97 mg/dL (74-106); SODIUM,NA 138 mmol/L (136-145)
== END 2020-10-19 09:35 | disposition home or self-care (01) ==
LOC: MW.ED 03:15 → MW.MS 05:47
PROVIDERS: ADMIT Obstetrics & Gynecology Obstetrics; ATTEND Obstetrics & Gynecology
DX: O21.0 Mild hyperemesis gravidarum (principal); O99.612 Diseases of the digestive system complicating pregnancy, second trimester; T62.91XA Toxic effect of unspecified noxious substance eaten as food, accidental (unintentional), initial encounter; O24.419 Gestational diabetes mellitus in pregnancy, unspecified control; Z3A.15 15 weeks gestation of pregnancy; Z20.822 Contact with and (suspected) exposure to COVID-19
CPT/HCPCS: 36415; 80053; 80305; 80307; 81003; 83690; 85025; 87635; 96365; 96366; 96375; 99285; A9270; J1200; J2405; J2550; J2765; J3480; J7030; J7120; 99284; U0002

== ENCOUNTER 2021-08-15 11:28 | Emergency (ER) | payer OTHER ==
[2021-08-15] MEDS ORDERED: Ondansetron 4 MG/2 ML SDV IVPUSH ONE (11:35)
[2021-08-15] MEDS ORDERED: Sodium Chloride 0.9% 1,000 ML IV ONE (11:35)
[2021-08-15] MEDS ORDERED: Ketorolac 30 MG/ML SDV IVPUSH ONE (11:35)
[2021-08-15 12:14] LABS: BLOOD UREA NITROGEN,BUN 10 mg/dL (7.0-18.0); CARBON DIOXIDE,CO2 24.9 mmol/L (21.0-32.0); CHLORIDE,CL 103 mmol/L (98-107); GLUCOSE RANDOM 92 mg/dL (74-106); LIPASE 130 U/L (73-393); POTASSIUM,K 4.1 mmol/L (3.5-5.1); SODIUM,NA 138 mmol/L (136-145)
== END 2021-08-15 14:13 | disposition home or self-care (01) ==
LOC: MW.ED 11:28
DX: K59.00 Constipation, unspecified (principal); Z91.013 Allergy to seafood
CPT/HCPCS: 36415; 74177; 80053; 81003; 81025; 83690; 85025; 96374; 96375; 99284; J1885; J2405; J7030; 99283

== ENCOUNTER 2021-10-20 07:46 | Emergency (ER) | payer OTHER ==
[2021-10-20] MEDS ORDERED: Ibuprofen 600 MG Tab PO ONE (08:10)
[2021-10-20] MEDS ORDERED: Cyclobenzaprine 10 MG Tab PO ONE (10:03)
== END 2021-10-20 10:35 | disposition home or self-care (01) ==
LOC: MW.ED 07:46
DX: S09.90XA Unspecified injury of head, initial encounter (principal); M54.6 Pain in thoracic spine; F10.10 Alcohol abuse, uncomplicated; Z79.899 Other long term (current) drug therapy; Z91.013 Allergy to seafood; V49.40XA Driver injured in collision with unspecified motor vehicles in traffic accident, initial encounter; Y92.410 Unspecified street and highway as the place of occurrence of the external cause
CPT/HCPCS: 36415; 70450; 72125; 72128; 72131; 84703; 99284; A9270

== ENCOUNTER 2022-10-08 09:36 | Emergency (ER) | payer MEDICAID ==
[2022-10-08] MEDS ORDERED: Ondansetron 4 MG Tab.DIS PO STA (10:20)
[2022-10-08] MEDS ORDERED: oxyCODONE 5 MG Tab PO STA (10:20)
[2022-10-08] MEDS ORDERED: cefTRIAXone 500 MG in Lidocaine 1% 1 ML IM STA (11:08)
== END 2022-10-08 12:19 | disposition home or self-care (01) ==
LOC: MW.ED 09:36
DX: N20.0 Calculus of kidney (principal); N30.01 Acute cystitis with hematuria; J45.909 Unspecified asthma, uncomplicated; Z91.013 Allergy to seafood; Z72.0 Tobacco use
CPT/HCPCS: 74176; 81001; 81025; 87086; 96372; 99284; A9270; J0696; 87088; 87186; J3490

== ENCOUNTER 2023-07-31 00:30 | Emergency (ER) | payer SELFPAY ==
[2023-07-31] MEDS: Sodium Chloride 0.9% 1,000 ML IV ONE (00:45)
[2023-07-31 00:46] LABS: BASOPHILS ABSOLUTE AUTO 0.02 K/uL (0.00-0.20); BASOPHILS PERCENT AUTO 0.2 % (0.0-1.0); EOSINOPHILS ABSOLUTE AUTO 0.15 K/uL (0.00-0.45); EOSINOPHILS PERCENT AUTO 1.7 % (0.0-6.0); HEMATOCRIT 41.4 % (37.0-47.0); HEMOGLOBIN 13.7 g/dL (12.0-16.0); IMMATURE GRAN ABSOLUTE AUTO 0.02 K/uL (0.00-0.05); IMMATURE GRAN PERCENT AUTO 0.2 % (0.0-0.4); LYMPHOCYTES ABSOLUTE AUTO 2.62 K/uL (1.00-4.80); LYMPHOCYTES PERCENT AUTO 29.6 % (24.0-44.0); MEAN CORPUSCULAR HEMOGLOBIN 29.2 pg (28.0-32.0); MEAN CORPUSCULAR HGB CONC 33.1 g/dL (32.0-36.0); MEAN CORPUSCULAR VOLUME 88.3 fL (83.0-99.0); MEAN PLATELET VOLUME 10.6 fL (9.4-12.3); MONOCYTES ABSOLUTE AUTO 0.87 K/uL (0.00-0.80); MONOCYTES PERCENT AUTO 9.8 % (0.0-8.0); NEUTROPHILS ABSOLUTE AUTO 5.18 K/uL (1.80-7.70); NEUTROPHILS PERCENT AUTO 58.5 % (41.0-71.0); PLATELET COUNT,PLT 313 K/uL (150-400); RED BLOOD CELL COUNT 4.69 M/uL (4.10-5.30); WHITE BLOOD CELL COUNT,WBC 8.86 K/uL (3.9-11.3)
[2023-07-31] MEDS: Famotidine 20 MG/2 ML SDV IVPUSH ONE (00:46)
[2023-07-31] MEDS: Ondansetron 4 MG/2 ML SDV IVPUSH ONE (00:46)
[2023-07-31] MEDS: Sodium Chloride 0.9% 2.5 ML Syringe FLUSH PRN (00:46)
[2023-07-31] MEDS: Sodium Chloride 0.9% 10 ML Syringe FLUSH PRN (00:46)
[2023-07-31] MEDS: Morphine 4 MG/ML Syringe IVPUSH ONE (00:46)
[2023-07-31 01:17] LABS: CARBON DIOXIDE,CO2 24.7 mmol/L (21.0-32.0); CREATININE 0.7 mg/dL (0.6-1.0); POTASSIUM,K 3.5 mmol/L (3.5-5.1)
[2023-07-31 01:18] LABS: ALBUMIN 3.6 g/dL (3.4-5.0); BILIRUBIN TOTAL 0.5 mg/dL (0.2-1.0); CALCIUM 8.4 mg/dL (8.5-10.1); EST CRCL DRUG DOSING (CG) 104.01 mL/min; PROTEIN TOTAL,TP 7.1 g/dL (6.4-8.2)
== END 2023-07-31 01:58 | disposition home or self-care (01) ==
LOC: MW.ED 00:30
DX: K52.9 Noninfective gastroenteritis and colitis, unspecified (principal); Z91.013 Allergy to seafood
CPT/HCPCS: 36415; 80053; 83690; 84703; 85025; 96361; 96374; 96375; 99284; J2270; J2405; J3490; J7030